=== PATIENT | male | born 1960 | race Hispanic/Latino ===

== ENCOUNTER 2017-01-31 21:57 | Observation (INO) | payer MEDICAID, OTHER ==
[2017-01-31 21:57] VITALS: BMI 22.1
[2017-01-31] MEDS ORDERED: Naloxone 0.4 mg/ml Inj (Adult) IVP STA (22:44)
[2017-01-31 23:11] LABS: BASO % 0.5 % (0.0-2.0); EOS # 0.1 K/uL (0.0-0.7); EOS % 2.8 % (0.0-4.0); HEMATOCRIT 35.9 % (35.0-51.0); LYMPH # 2.1 K/uL (1.0-4.3); LYMPH % 42.8 % (20.0-40.0); MEAN CELL VOLUME 95.8 fl (80.0-94.0); MEAN CORPUSCULAR HEMOGLOBIN 31.5 pg (27.0-31.0); MEAN CORPUSCULAR HGB CONC 32.9 g/dL (33.0-37.0); MEAN PLATELET VOLUME 5.9 fl (7.2-11.7); MONO # 0.5 K/uL (0.0-0.8); MONO % 10.9 % (0.0-10.0); NEUT # 2.1 K/uL (1.8-7.0); RED CELL DISTRIBUTION WIDTH 14.1 % (11.5-14.5); WHITE BLOOD COUNT 4.9 K/uL (4.8-10.8)
[2017-01-31 23:16] LABS: ALB/GLOB RATIO 1.5 (1.0-2.1); ALCOHOL SERUM < 10 mg/dl (0-10); ALKALINE PHOSPHATASE 79 U/L (38-126); ALT/SGPT 23 U/L (21-72); AST/SGOT 20 U/L (17-59); BILIRUBIN,TOTAL 0.2 mg/dl (0.2-1.3); BLOOD UREA NITROGEN 14 mg/dl (9-20); CALCIUM 8.8 mg/dL (8.4-10.2); CARBON DIOXIDE 30 mmol/L (22-30); CHLORIDE 102 mmol/L (98-107); GFR AFRICAN-AMERICAN > 60; GLUCOSE,RANDOM 108 mg/dL (75-110); POTASSIUM 3.9 MMOL/L (3.6-5.0); SODIUM 138 mmol/l (132-148); TOTAL PROTEIN 6.5 G/DL (6.3-8.2)
--- NOTE | 2017-02-01 00:02 | ED PDOC ---
HPI: Psych/Substance Abuse Time Seen by Provider: 01/31/17 22:05 Chief Complaint (Nursing): Substance Abuse History Per: EMS Additional Complaint(s): Pt. brought in by EMS for substance abuse or ETOH intoxication. Unable to find EMS report. Pt. not answering questions. Past Medical History Reviewed: Historical Data, Nursing Documentation, Vital Signs Vital Signs: Last Vital Signs Temp 98.2 F 01/31/17 22:02 Pulse 74 01/31/17 23:04 Resp 15 01/31/17 23:04 BP 101/63 01/31/17 23:04 Pulse Ox 96 01/31/17 23:04 - Medical History PMH: Back Problems, Depression, Seizures Denies: Diabetes, Hepatitis, HIV, HTN, Chronic Kidney Disease, Sexually Transmitted Disease - Family History Family History: States: Unknown Family Hx - Immunization History Hx Tetanus Toxoid Vaccination: No Hx Influenza Vaccination: No Hx Pneumococcal Vaccination: No - Home Medications Home Medications: Ambulatory Orders Medication Instructions Recorded Gabapentin [Neurontin] 300 mg PO TID 08/15/16 levETIRAcetam [Keppra] 500 mg PO TID 08/15/16 traMADol [Ultram] 50 mg PO PRN PRN 08/15/16 Tobramycin 0.3% [Tobrex 0.3% Ophth 1 drop OS Q4 #1 bottle 09/27/16 Soln] Albuterol 0.042% [Albuterol 0.042% 3 ml IH PRN PRN 12/31/16 Inhal Stefanie (1.25mg/3ml) UD] Zolpidem [Ambien] 10 mg PO DAILY 12/31/16 - Allergies Allergies/Adverse Reactions: Allergies Allergy/AdvReac Type Severity Reaction Status Date / Time No Known Allergies Allergy Verified 01/07/17 09:06 Review of Systems Review Of Systems: ROS cannot be obtained secondary to pt's inabilty to answer questions. Physical Exam - Reviewed Nursing Documentation Reviewed: Yes Vital Signs Reviewed: Yes - Physical Exam Appears: Positive for: Well, Non-toxic, No Acute Distress Head Exam: Positive for: ATRAUMATIC, NORMAL INSPECTION, NORMOCEPHALIC Skin: Positive for: Normal Color, Warm. Negative for: Rash Eye Exam: Positive for: EOMI, Normal appearance, PERRL ENT: Positive for: Normal ENT Inspection Neck: Positive for: Normal, Painless ROM Cardiovascular/Chest: Positive for: Regular Rate, Rhythm, Chest Non Tender Respiratory: Positive for: CNT, Normal Breath Sounds Gastrointestinal/Abdominal: Positive for: Normal Exam, Bowel Sounds, Soft. Negative for: Tenderness Back: Positive for: Normal Inspection. Negative for: Vertebral Tenderness ( including cervical area) Extremity: Positive for: Normal ROM Neurologic/Psych: Positive for: Alert, Other (Pt. responds only to loud verbal and tactile stimuli but does not follow commands). Negative for: Aphasia, Facial Droop - Laboratory Results Result Diagrams: 01/31/17 22:49 01/31/17 22:49 - ECG ECG: Positive for: Interpreted By Me ECG Rhythm: Positive for: Sinus Rhythm O2 Sat by Pulse Oximetry: 96 - Radiology X-Ray: Interpreted by Me (CXR) X-Ray Interpretation: No Acute Disease ED OBSERVATION Discharge: Yes Date of observation admission: 02/01/17 Time of observation admission: 22:45 - Observation admission statement Patient is being placed in observation because:: substance abuse vs. etoh intoxication - Progress Note Progress Note: 01/31/17 22:[address] Bass as pt. is hypoxic at 92% on RA. Narcan ordered but pt. remains somnolent and is still not refusing to answer questions. POX: 94-96% on RA O2 placed. 02/01/17 02:08 Sleeping comfortably. Arousable to tactile stimuli. 02/01/17 04:18 Pt. AOx3. States he took ~10 Fioricet tabs yesterday for a headache. Reports a hx of chronic headaches. Currently without a headache. Denies SI/HI, hallucinations. 02/01/17 05:01 CT head w/o contrast: No acute changes Diffuse fluid in multiple left mastoid air cells inferiorly, suspicious for mastoiditis. There is also sclerosis of the left mastoid process, a finding which can be seen in the setting of chronic mastoiditis. There is no evidence of diffuse left mastoid fluid or fluid in the left middle ear cavity. Pt. states approximately 4 years ago he was admitted into the hospital for an ear infection but is uncertain if it was mastoiditis. Denies pain to mastoid area. No mastoid tenderness or swelling. 02/01/17 05:57 Pt. with steady unassisted gait. Disposition - Clinical Impression Clinical Impression: Overdose of barbiturate - Patient ED Disposition Is Patient to be Admitted: No - Disposition Disposition Time: 05:59 Condition: IMPROVED
[2017-02-01] MEDS ORDERED: Sodium Chloride 0.9% 1,000 ML IV STA (00:55)
--- NOTE | 2017-02-01 04:49 | CT ---
EXAM: CT Head Without Intravenous Contrast CLINICAL HISTORY: 56 years old, male; Signs and symptoms; Other: Substance abuse; Additional info: AMS TECHNIQUE: Axial computed tomography images of the head/brain without intravenous contrast. This CT exam was performed using one or more of the following dose reduction techniques: automated exposure control, adjustment of the mA and/or kV according to patient size, and/or use of iterative reconstruction technique. Coronal and sagittal reformatted images were created and reviewed. EXAM DATE/TIME: 02/01/2017 12:48 AM COMPARISON: No relevant prior studies available. FINDINGS: LIMITATIONS: Exam is somewhat limited by mild streak/motion artifact. BRAIN: Focal area of low density is seen in the left basal ganglia, which has an appearance most compatible with an old/chronic lacunar infarct. Diffuse, age-related cortical atrophy and ventriculomegaly. No significant acute abnormality identified. No acute hemorrhage seen within the brain. No acute extra-axial fluid collections visualized. No evidence of significant mass effect within the brain. VENTRICLES: See above. BONES/JOINTS: No acute fractures or other acute bony abnormality noted. SOFT TISSUES: No acute abnormality of the visualized soft tissues is seen. SINUSES: Visualized paranasal sinuses appear clear. MASTOID AIR CELLS: Diffuse fluid in multiple left mastoid air cells inferiorly, suspicious for mastoiditis. There is also sclerosis of the left mastoid process, a finding which can be seen in the setting of chronic mastoiditis. There is no evidence of diffuse left mastoid fluid or fluid in the left middle ear cavity. IMPRESSION: - No acute findings seen within the brain. - Findings compatible with left mastoiditis. - See above for remaining findings.
--- NOTE | 2017-02-01 04:58 | CT ---
EXAM: CT Cervical Spine Without Intravenous Contrast CLINICAL HISTORY: 56 years old, male; Injury or trauma; Injury Substance abuse; Initial encounter; Swelling; Additional info: AMS TECHNIQUE: Axial computed tomography images of the cervical spine without intravenous contrast. This CT exam was performed using one or more of the following dose reduction techniques: automated exposure control, adjustment of the mA and/or kV according to patient size, and/or use of iterative reconstruction technique. Coronal and sagittal reformatted images were created and reviewed. EXAM DATE/TIME: 02/01/2017 12:48 AM COMPARISON: No relevant prior studies available. FINDINGS: VERTEBRAE: No acute cervical spine fractures visualized. No significant vertebral subluxation seen on the sagittal reformatted images. Normal alignment of C1 and C2 and of the facet joints. DISCS/SPINAL CANAL/NEURAL FORAMINA: Mild multilevel degenerative disc disease. Degenerative changes at the atlantoaxial joint. SOFT TISSUES: No acute abnormality of the visualized soft tissues is seen. LUNG APICES: Emphysematous changes incidentally noted in the lung apices. No pneumothorax is seen. OTHER FINDINGS: Bony structures appear demineralized. IMPRESSION: - No acute cervical spine fractures identified. - Emphysematous changes incidentally noted. - See above for remaining findings.
[2017-02-01 06:43] VITALS: BP 125/81; PULSE 66; RESP 17; TEMP 98.3; O2SAT 99
--- NOTE | 2017-02-01 09:42 | RAD ---
HISTORY: hypoxic COMPARISON: 07/20/2016 FINDINGS: LUNGS: No focal airspace opacity. Hyperinflation. Suspected emphysematous changes lung apices. PLEURA: No significant pleural effusion identified, no pneumothorax apparent.Biapical pleural parenchymal thickening noted. CARDIOVASCULAR: Stable. OSSEOUS STRUCTURES: The osseous structures demonstrate degenerative changes. VISUALIZED UPPER ABDOMEN: Upper abdomen is suboptimally evaluated. OTHER FINDINGS: None. IMPRESSION: No focal airspace opacity. Please note that chest radiographs have low sensitivity for small pulmonary nodules. If indicated, chest CT should be obtained.
--- NOTE | 2017-02-01 12:44 | CARD ---
APPROVED REPORT EKG Measurement Heart [id number] <Conclusion> Normal sinus rhythm Normal ECG
== END 2017-02-01 06:13 | disposition home or self-care (01) ==
LOC: H.ER 21:57 → H.EROBSV 22:45
PROVIDERS: ADMIT Emergency Medicine; ATTEND Emergency Medicine
DX: T42.3X1A Poisoning by barbiturates, accidental (unintentional), initial encounter (principal); F10.129 Alcohol abuse with intoxication, unspecified; Y92.9 Unspecified place or not applicable

== ENCOUNTER 2017-02-28 00:24 | Observation (INO) | payer OTHER ==
[2017-02-28 00:25] VITALS: BMI 22.1
[2017-02-28 00:31] VITALS: TEMP 98.3
[2017-02-28 01:57] LABS: BASO % 0.7 % (0.0-2.0); EOS # 0.1 K/uL (0.0-0.7); HEMOGLOBIN 12.5 g/dL (12.0-18.0); LYMPH # 1.9 K/uL (1.0-4.3); LYMPH % 32.8 % (20.0-40.0); MEAN CELL VOLUME 96.4 fl (80.0-94.0); MEAN CORPUSCULAR HEMOGLOBIN 32.5 pg (27.0-31.0); MEAN CORPUSCULAR HGB CONC 33.7 g/dL (33.0-37.0); MEAN PLATELET VOLUME 5.8 fl (7.2-11.7); MONO # 0.8 K/uL (0.0-0.8); MONO % 13.4 % (0.0-10.0); NEUT # 2.9 K/uL (1.8-7.0); NEUT % 51.1 % (50.0-75.0); NRBC % 0.1 % (0.0-0.0); RBC 3.85 Mil/uL (4.40-5.90); RED CELL DISTRIBUTION WIDTH 14.1 % (11.5-14.5); WHITE BLOOD COUNT 5.7 K/uL (4.8-10.8)
--- NOTE | 2017-02-28 02:05 | ED PDOC ---
HPI: Psych/Substance Abuse Time Seen by Provider: 02/28/17 00:35 Chief Complaint (Nursing): Substance Abuse Chief Complaint (Provider): Substance Abuse ED Caveat: Intoxicated (Fioricet) History Per: Patient History/Exam Limitations: intoxication (Fioricet) Onset/Duration Of Symptoms: Hrs (earlier today) Current Symptoms Are (Timing): Still Present Modifying Factor(s): Other (Fioricet) Involuntary Hold By: None Additional History Per: EMS Additional Complaint(s): 56 year old male brought in by EMS presents to ED due to drug abuse. Patient states that he took x15 pills of Fioricet after having a headache and wanting to feel better. States that he no longer has headache. Patient denies memory of falling/hitting head, and arrives to ED with right sided facial trauma. PCP: None Past Medical History Reviewed: Historical Data, Nursing Documentation, Vital Signs Vital Signs: Last Vital Signs Temp 98.3 F 02/28/17 00:26 Pulse 94 H 02/28/17 00:26 Resp 16 02/28/17 00:26 BP 149/65 02/28/17 00:26 Pulse Ox 98 02/28/17 00:26 - Medical History PMH: Back Problems, Depression, Seizures Denies: Diabetes, Hepatitis, HIV, HTN, Chronic Kidney Disease, Sexually Transmitted Disease - Family History Family History: States: Unknown Family Hx - Social History Drugs: Prescription medications (Fioricet) - Immunization History Hx Tetanus Toxoid Vaccination: No Hx Influenza Vaccination: No Hx Pneumococcal Vaccination: No - Home Medications Home Medications: Ambulatory Orders Medication Instructions Recorded Gabapentin [Neurontin] 300 mg PO TID 08/15/16 levETIRAcetam [Keppra] 500 mg PO TID 08/15/16 traMADol [Ultram] 50 mg PO PRN PRN 08/15/16 Tobramycin 0.3% [Tobrex 0.3% Ophth 1 drop OS Q4 #1 bottle 09/27/16 Soln] Albuterol 0.042% [Albuterol 0.042% 3 ml IH PRN PRN 12/31/16 Inhal Stefanie (1.25mg/3ml) UD] Zolpidem [Ambien] 10 mg PO DAILY 12/31/16 - Allergies Allergies/Adverse Reactions: Allergies Allergy/AdvReac Type Severity Reaction Status Date / Time No Known Allergies Allergy Verified 01/07/17 09:06 Review of Systems Review Of Systems: ROS cannot be obtained secondary to pt's inabilty to answer questions. (Limited due to drug abuse) Neurological: Positive for: Headache (Resolution of headache) Physical Exam - Reviewed Nursing Documentation Reviewed: Yes - Physical Exam Appears: Positive for: No Acute Distress. Negative for: Well Head Exam: Positive for: NORMOCEPHALIC. Negative for: ATRAUMATIC (abrasion to nose, right evangelical, and 1 cm laceration to right eyebrow) Skin: Positive for: Normal Color, Warm, Dry Eye Exam: Positive for: Normal appearance ENT: Positive for: Normal ENT Inspection Neck: Positive for: Normal, Painless ROM, Supple Cardiovascular/Chest: Negative for: Murmur Respiratory: Negative for: Respiratory Distress Gastrointestinal/Abdominal: Positive for: Normal Exam, Soft. Negative for: Tenderness Back: Positive for: Normal Inspection Extremity: Positive for: Normal ROM. Negative for: Deformity Neurologic/Psych: Negative for: Alert (somnolent but arousable upon sternal rub) , Motor/Sensory Deficits - Laboratory Results Result Diagrams: 02/28/17 01:54 02/28/17 01:54 - ECG O2 Sat by Pulse Oximetry: 98 (RA) Pulse Ox Interpretation: Normal Medical Decision Making Medical Decision Makin Initial impression: drug abuse and head injury Initial plan: * Acetaminophen * EtOH serum * Labs * UDrug * Salicylate * ED OBS All further documentation will take place in the ED OBS section of the chart. Wound repair in procedure notes. Scribe Attestation: Documented by Ciear Peña acting as a scribe for Wayne Bass MD. Scribe Attestation: All medical record entries made by the Scribe were at my direction and personally dictated by me. I have reviewed the chart and agree that the record accurately reflects my personal performance of the history, physical exam, medical decision making, and the department course for this patient. I have also personally directed, reviewed, and agree with the discharge instructions and disposition. Procedures - Time-Out Type of Procedure: Wound Repair Site of Procedure: Right eyebrow Correct Patient (with visual ID + MR# on ID Band): Yes Correct Procedure: Yes Correct Site Marked: Yes X-Ray Marked: NA Medication Reconciliation / Bloodwork / Allergies Checked: Yes Physician Name: Wayne Bass - Laceration/Wound Repair Right Eyebrow Wound Length (cm): 1 Wound's Depth, Shape: superficial Wound Explored: clean Wound Repaired With: Skin adhesive (Dermabond) Layer Closure?: Yes Wound Complexity: Simple Progress: Patient tolerated procedure well. ED OBSERVATION Discharge: Yes Date of observation admission: 02/28/17 Time of observation admission: 01:25 - Observation admission statement Patient is being placed in observation because:: Drug abuse/intoxication - Goals of Observation Goals of observation are:: Clinical sobriety - Progress Note Progress Note: 02/28/17 02:23 Patient's vitals are stable and resting. 02/28/17 03:37 Patient is resting comfortably. 02/28/17 05:01 Patient is resting comfortably. 02/28/17 06:36 Patient is resting comfortably. 02/28/17 06:54 Upon re-evaluation, patient is feeling much better and is medically stable and ready for discharge. Counseling has been provided and patient is in agreement. Return if symptoms persist or acutely worsen. Disposition - Clinical Impression Clinical Impression: Overdose - Disposition Disposition: Routine/Home ([id number]) Disposition Time: 01:25 Condition: STABLE - Pt Status Changed To: Hospital Disposition Of: Observation
[2017-02-28 02:06] LABS: GFR AFRICAN-AMERICAN > 60; GFR NON-AFRICAN AMERICAN > 60
[2017-02-28 02:07] LABS: BLOOD UREA NITROGEN 16 mg/dl (9-20); CALCIUM 8.7 mg/dL (8.4-10.2)
[2017-02-28 02:32] LABS: SALICYLATE < 1.0 mg/dl
[2017-02-28 02:36] LABS: ACETAMINOPHEN < 10.0 ug/ml (10.0-30.0)
[2017-02-28] MEDS ORDERED: Sodium Chloride 0.9% 1,000 ML IV STA (04:07)
--- NOTE | 2017-02-28 04:53 | CT ---
EXAM: CT Maxillofacial Without Intravenous Contrast CLINICAL HISTORY: 56 years old, male; Injury or trauma; Fall; Initial encounter; Blunt trauma (contusions or hematomas); Forehead; Additional info: Head injury, drug abuse TECHNIQUE: Axial computed tomography images of the face without intravenous contrast. This CT exam was performed using one or more of the following dose reduction techniques: automated exposure control, adjustment of the mA and/or kV according to patient size, and/or use of iterative reconstruction technique. Coronal and sagittal reformatted images were created and reviewed. EXAM DATE/TIME: 02/28/2017 2:43 AM COMPARISON: CT - HEAD W/O CONTRAST 02/01/2017 4:01:05 AM FINDINGS: Dental hardware producing artifact. Subcutaneous soft tissue swelling right frontal, nasal and orbital regions. Small amount of fluid in the left mastoid air cells similar to prior. There is minimal mucosal thickening of the ethmoid sinuses. No acute fractures. IMPRESSION: No acute fractures.
--- NOTE | 2017-02-28 05:02 | CT ---
EXAM: CT Head Without Intravenous Contrast CLINICAL HISTORY: 56 years old, male; Injury or trauma; Fall; Additional info: Drug abuse, head injury TECHNIQUE: Axial computed tomography images of the head/brain without intravenous contrast. This CT exam was performed using one or more of the following dose reduction techniques: automated exposure control, adjustment of the mA and/or kV according to patient size, and/or use of iterative reconstruction technique. Coronal and sagittal reformatted images were created and reviewed. EXAM DATE/TIME: 02/28/2017 2:43 AM COMPARISON: CT - HEAD W/O CONTRAST 02/01/2017 4:01:05 AM FINDINGS: There is subcutaneous soft tissue swelling in the right frontal, nasal, orbital regions. No intracranial hemorrhage. Stable old lacunar infarct left basal ganglia. No intracranial edema. Stable mild mucosal thickening of the ethmoid sinuses. Small amount of fluid and sclerosis in the inferior left mastoid air cells not significantly changed. No depressed fractures. IMPRESSION: No acute intracranial injury.
[2017-02-28 05:17] VITALS: BP 120/74; PULSE 68; RESP 17
[2017-02-28 06:02] VITALS: O2SAT 98
[2017-02-28 07:34] LABS: BARBITURATES, UR POSITIVE (NEGATIVE); BENZODIAZEPINES, UR NEGATIVE (NEGATIVE); PHENCYCLIDINE, UR NEGATIVE (NEGATIVE)
[2017-02-28 07:36] LABS: OPIATES, UR NEGATIVE (NEGATIVE)
[2017-02-28 10:16] LABS: ALT/SGPT 25 U/L (21-72); AST/SGOT 41 U/L (17-59)
--- NOTE | 2017-03-06 06:42 | CARD ---
APPROVED REPORT EKG Measurement Heart [id number] <Conclusion> Normal sinus rhythm Early repolarization Normal ECG
== END 2017-02-28 07:00 | disposition home or self-care (01) ==
LOC: H.ER 00:24 → H.EROBSV 01:25
PROVIDERS: ADMIT Emergency Medicine; ATTEND Emergency Medicine
DX: F19.10 Other psychoactive substance abuse, uncomplicated (principal); F32.9 Major depressive disorder, single episode, unspecified; G40.909 Epilepsy, unspecified, not intractable, without status epilepticus; R51 Headache; S01.111A Laceration without foreign body of right eyelid and periocular area, initial encounter; X58.XXXA Exposure to other specified factors, initial encounter

== ENCOUNTER 2017-03-27 22:55 | Observation (INO) | payer OTHER ==
[2017-03-27 22:56] VITALS: BMI 22.1
[2017-03-27 23:02] VITALS: TEMP 98.5
--- NOTE | 2017-03-27 23:39 | ED PDOC ---
HPI: Psych/Substance Abuse Time Seen by Provider: 03/27/17 23:25 Chief Complaint (Nursing): Substance Abuse Chief Complaint (Provider): Altered Mental Status and Possible Substance Abuse ED Caveat: Altered Mental Status History Per: EMS, Other (Charts) History/Exam Limitations: intoxication (Possible Substance Intoxication) Modifying Factor(s): Alcohol Additional Complaint(s): Stewart Chirinos, a 56 year old male, who has a past medical history of seizures and substance abuse is brought into the ED by ambulance for altered mental status and and possible substance abuse. Unable to obtain history due to patients condition.Unable to answer questions about review of systems and past medical history. History obtained from EMS and patient charts. Past Medical History Reviewed: Historical Data, Nursing Documentation, Vital Signs Vital Signs: Last Vital Signs Temp 98.5 F 03/27/17 22:59 Pulse 74 03/27/17 23:17 Resp 16 03/27/17 23:17 BP 110/74 03/27/17 23:17 Pulse Ox 97 03/27/17 23:17 - Medical History PMH: Back Problems, Depression, Seizures Denies: Diabetes, Hepatitis, HIV, HTN, Chronic Kidney Disease, Sexually Transmitted Disease - Family History Family History: States: Unknown Family Hx - Immunization History Hx Tetanus Toxoid Vaccination: No Hx Influenza Vaccination: No Hx Pneumococcal Vaccination: No - Home Medications Home Medications: Ambulatory Orders Medication Instructions Recorded Gabapentin [Neurontin] 300 mg PO TID 08/15/16 levETIRAcetam [Keppra] 500 mg PO TID 08/15/16 traMADol [Ultram] 50 mg PO PRN PRN 08/15/16 Tobramycin 0.3% [Tobrex 0.3% Ophth 1 drop OS Q4 #1 bottle 09/27/16 Soln] Albuterol 0.042% [Albuterol 0.042% 3 ml IH PRN PRN 12/31/16 Inhal Stefanie (1.25mg/3ml) UD] Zolpidem [Ambien] 10 mg PO DAILY 12/31/16 - Allergies Allergies/Adverse Reactions: Allergies Allergy/AdvReac Type Severity Reaction Status Date / Time No Known Allergies Allergy Verified 03/27/17 22:59 Review of Systems ROS Statement: Except As Marked, All Systems Reviewed And Found Negative Physical Exam - Reviewed Nursing Documentation Reviewed: Yes Vital Signs Reviewed: Yes - Physical Exam Appears: Positive for: Non-toxic, No Acute Distress Head Exam: Positive for: ATRAUMATIC, NORMAL INSPECTION, NORMOCEPHALIC Skin: Positive for: Normal Color, Warm, Dry Eye Exam: Positive for: Normal appearance, EOMI, PERRL ENT: Positive for: Normal ENT Inspection Neck: Positive for: Normal, Painless ROM, Supple Cardiovascular/Chest: Positive for: Regular Rate, Rhythm, Chest Non Tender Respiratory: Positive for: Normal Breath Sounds. Negative for: Wheezing, Respiratory Distress Gastrointestinal/Abdominal: Positive for: Normal Exam, Bowel Sounds, Soft. Negative for: Tenderness Back: Positive for: Normal Inspection Extremity: Positive for: Normal ROM. Negative for: Tenderness, Deformity, Swelling Neurologic/Psych: Negative for: Alert (Obtunded, Easily arousable to verbal and physical stimulation.), Motor/Sensory Deficits - Laboratory Results Result Diagrams: 03/27/17 23:46 03/27/17 23:46 - ECG O2 Sat by Pulse Oximetry: 97 (RA) Pulse Ox Interpretation: Normal Medical Decision Making Medical Decision Makin Initial Impression: 56 year old male presenting with altered mental status Differentials:Substance abuse with Alcohol Intoxication vs Benzol Overdose vs Barbiturate Abuse, Other causes of altered mental status also considered Initial Plan: * CT Head w/o Contrast * EKG * Alcohol Serum * Comp Metabolic Panel * Drug Screen * CBC * [id number] * Reevaluation 12:32 CT Head Without Intravenous Contrast TECHNIQUE: Axial computed tomography images of the head/brain without intravenous contrast. This CT exam was performed using one or more of the following dose reduction techniques: automated exposure control, adjustment of the mA and/or kV according to patient size, and/or use of iterative reconstruction technique. Coronal and sagittal reformatted images were created and reviewed. EXAM DATE/TIME: 03/27/2017 11:30 PM COMPARISON: CT - HEAD W/O CONTRAST 02/28/2017 4:01:09 AM FINDINGS: No intracranial hemorrhage. No intracranial edema. No evidence of infarct. Mild mucosal thickening of the ethmoid sinuses similar to prior possibly slightly increased on the left. Recommend clinical correlation with regards to signs/symptoms of sinusitis. Stable small amount of fluid and sclerosis inferior left mastoid air cells. IMPRESSION: No acute intracranial findings. Sinus disease as above. Scribe Attestation Documented by Natalia Harris acting as a scribe for Danica Henning MD. Provider Attestation All medical record entries made by the Scribe were at my direction and personally dictated by me. I have reviewed the chart and agree that the record accurately reflects my personal performance of the history, physical exam, medical decision making, and the department course for this patient. I have also personally directed, reviewed, and agree with the discharge instructions and disposition. ED OBSERVATION Date of observation admission: 03/28/17 Time of observation admission: 02:17 - Observation admission statement Patient is being placed in observation because:: Altered mental status and substance abuse. Disposition - Clinical Impression Clinical Impression: Substance abuse - Patient ED Disposition Is Patient to be Admitted: No Doctor Will See Patient In The: Office Counseled Patient/Family Regarding: Studies Performed, Diagnosis, Need For Followup - Disposition Disposition: Routine/Home Disposition Time: 06:08 Condition: GOOD - POA Present On Arrival: None
[2017-03-27 23:51] LABS: BASO % 0.3 % (0.0-2.0); EOS # 0.1 K/uL (0.0-0.7); EOS % 1.8 % (0.0-4.0); LYMPH # 2.6 K/uL (1.0-4.3); MEAN CELL VOLUME 96.6 fl (80.0-94.0); MEAN CORPUSCULAR HGB CONC 33.1 g/dL (33.0-37.0); MEAN PLATELET VOLUME 6.1 fl (7.2-11.7); MONO # 0.9 K/uL (0.0-0.8); MONO % 11.6 % (0.0-10.0); NEUT # 4.1 K/uL (1.8-7.0); NEUT % 53.3 % (50.0-75.0); NRBC % 0.1 % (0.0-0.0); RBC 4.05 Mil/uL (4.40-5.90); RED CELL DISTRIBUTION WIDTH 13.5 % (11.5-14.5); WHITE BLOOD COUNT 7.8 K/uL (4.8-10.8)
[2017-03-27 23:58] LABS: ALB/GLOB RATIO 1.6 (1.0-2.1); ALBUMIN 4.2 g/dL (3.5-5.0); ALT/SGPT 29 U/L (21-72); AST/SGOT 22 U/L (17-59); BLOOD UREA NITROGEN 16 mg/dl (9-20); CALCIUM 8.9 mg/dL (8.4-10.2); GFR AFRICAN-AMERICAN > 60; GFR NON-AFRICAN AMERICAN > 60
--- NOTE | 2017-03-28 00:32 | CT ---
EXAM: CT Head Without Intravenous Contrast CLINICAL HISTORY: 56 years old, male; Signs and symptoms; Altered mental status/memory loss; Other: Poss substance abuse; Additional info: AMS TECHNIQUE: Axial computed tomography images of the head/brain without intravenous contrast. This CT exam was performed using one or more of the following dose reduction techniques: automated exposure control, adjustment of the mA and/or kV according to patient size, and/or use of iterative reconstruction technique. Coronal and sagittal reformatted images were created and reviewed. EXAM DATE/TIME: 03/27/2017 11:30 PM COMPARISON: CT - HEAD W/O CONTRAST 02/28/2017 4:01:09 AM FINDINGS: No intracranial hemorrhage. No intracranial edema. No evidence of infarct. Mild mucosal thickening of the ethmoid sinuses similar to prior possibly slightly increased on the left. Recommend clinical correlation with regards to signs/symptoms of sinusitis. Stable small amount of fluid and sclerosis inferior left mastoid air cells. IMPRESSION: No acute intracranial findings. Sinus disease as above.
[2017-03-28 04:00] VITALS: BP 135/80; PULSE 72; RESP 16
[2017-03-28 06:08] VITALS: O2SAT 97
--- NOTE | 2017-03-28 10:12 | CARD ---
APPROVED REPORT EKG Measurement Heart [id number] CT [id number] <Conclusion> Normal sinus rhythm Normal ECG
== END 2017-03-28 06:13 | disposition home or self-care (01) ==
LOC: H.ER 22:55 → H.EROBSV 03-28 02:16
PROVIDERS: ADMIT Emergency Medicine; ATTEND Emergency Medicine
DX: F19.10 Other psychoactive substance abuse, uncomplicated (principal); R41.82 Altered mental status, unspecified; F32.9 Major depressive disorder, single episode, unspecified; G40.909 Epilepsy, unspecified, not intractable, without status epilepticus

== ENCOUNTER 2017-03-28 23:06 | Emergency (ER) | payer OTHER ==
[2017-03-28 23:06] VITALS: BMI 22.1
--- NOTE | 2017-03-29 01:05 | ED PDOC ---
HPI: Psych/Substance Abuse Time Seen by Provider: 03/28/17 23:14 Chief Complaint (Nursing): Alcohol Ingestion Chief Complaint (Provider): ETOH - Pt found sleeping, pt admits to drinking History Per: Patient History/Exam Limitations: no limitations Onset/Duration Of Symptoms: Hrs Current Symptoms Are (Timing): Still Present Modifying Factor(s): Alcohol Additional Complaint(s): Pt states he was sleeping outside when he was woken up by EMS. Pt denies complaint. Past Medical History Reviewed: Historical Data, Nursing Documentation, Vital Signs Vital Signs: Last Vital Signs Temp 97.9 F 03/28/17 23:09 Pulse 68 03/28/17 23:09 Resp 16 03/28/17 23:09 BP 115/75 03/28/17 23:09 Pulse Ox 95 03/28/17 23:09 - Medical History PMH: Back Problems, Depression, Seizures Denies: Diabetes, Hepatitis, HIV, HTN, Chronic Kidney Disease, Sexually Transmitted Disease - Surgical History Surgical History: No Surg Hx - Family History Family History: States: Unknown Family Hx - Living Arrangements Living Arrangements: With Family - Social History Current smoker - smoking cessation education provided: No - Immunization History Hx Tetanus Toxoid Vaccination: No Hx Influenza Vaccination: No Hx Pneumococcal Vaccination: No - Home Medications Home Medications: Ambulatory Orders Medication Instructions Recorded Gabapentin [Neurontin] 300 mg PO TID 08/15/16 levETIRAcetam [Keppra] 500 mg PO TID 08/15/16 traMADol [Ultram] 50 mg PO PRN PRN 08/15/16 Tobramycin 0.3% [Tobrex 0.3% Ophth 1 drop OS Q4 #1 bottle 09/27/16 Soln] Albuterol 0.042% [Albuterol 0.042% 3 ml IH PRN PRN 12/31/16 Inhal Stefanie (1.25mg/3ml) UD] Zolpidem [Ambien] 10 mg PO DAILY 12/31/16 - Allergies Allergies/Adverse Reactions: Allergies Allergy/AdvReac Type Severity Reaction Status Date / Time No Known Allergies Allergy Verified 03/28/17 23:09 Review of Systems ROS Statement: Except As Marked, All Systems Reviewed And Found Negative Gastrointestinal: Negative for: Nausea, Vomiting, Abdominal Pain Skin: Negative for: Bruising Physical Exam - Reviewed Nursing Documentation Reviewed: Yes Vital Signs Reviewed: Yes - Physical Exam Appears: Positive for: Well, Non-toxic, No Acute Distress Head Exam: Positive for: ATRAUMATIC, NORMAL INSPECTION, NORMOCEPHALIC Skin: Positive for: Normal Color, Warm, DRY Eye Exam: Positive for: Normal appearance, EOMI, PERRL ENT: Positive for: Normal ENT Inspection Neck: Positive for: Normal, Painless ROM Cardiovascular/Chest: Positive for: Regular Rate, Rhythm Respiratory: Positive for: Normal Breath Sounds. Negative for: Accessory Muscle Use, Respiratory Distress Gastrointestinal/Abdominal: Positive for: Normal Exam, Bowel Sounds, Soft Back: Positive for: Normal Inspection Extremity: Positive for: Normal ROM Neurologic/Psych: Positive for: Alert, Oriented - ECG O2 Sat by Pulse Oximetry: 95 Disposition - Clinical Impression Clinical Impression: Alcohol abuse - Patient ED Disposition Is Patient to be Admitted: No Counseled Patient/Family Regarding: Diagnosis, Need For Followup - Disposition Disposition: Routine/Home Disposition Time: 04:41 Condition: GOOD Instructions: Abuse of Alcohol (ED)
[2017-03-29 06:07] VITALS: BP 126/76; PULSE 78; RESP 18; TEMP 98.2
[2017-03-29 06:08] VITALS: O2SAT 95
== END 2017-03-29 06:23 | disposition home or self-care (01) ==
LOC: H.ER 23:06
DX: F10.10 Alcohol abuse, uncomplicated (principal); F32.9 Major depressive disorder, single episode, unspecified

== ENCOUNTER 2017-04-27 17:42 | Observation (INO) | payer OTHER ==
[2017-04-27 17:42] VITALS: BMI 22.1
--- NOTE | 2017-04-27 18:25 | ED PDOC ---
HPI: Psych/Substance Abuse Time Seen by Provider: 04/27/17 17:43 Chief Complaint (Nursing): Substance Abuse Chief Complaint (Provider): Substance Abuse ED Caveat: Intoxicated (substance ) History Per: EMS History/Exam Limitations: intoxication (substance) Onset/Duration Of Symptoms: Mins (prior to arrival) Current Symptoms Are (Timing): Still Present Additional Complaint(s): Stewart Chirinos is a 56 year old male who presents to the emergency department via EMS for an evaluation after patient was found walking with unsteady gait in street prior to arrival. Unable to provide accurate history due to patient's current state of drug intoxication. Patient admitted to using a bag of heroine and Xanax today. PMD: none provided Past Medical History Reviewed: Historical Data, Nursing Documentation, Vital Signs Vital Signs: Last Vital Signs Temp 98.0 F 04/27/17 17:48 Pulse 94 H 04/27/17 17:48 Resp 19 04/27/17 17:48 BP 160/98 H 04/27/17 17:48 Pulse Ox 96 04/27/17 17:48 - Medical History PMH: Back Problems, Depression, Seizures Denies: Diabetes, Hepatitis, HIV, HTN, Chronic Kidney Disease, Sexually Transmitted Disease - Family History Family History: States: Unknown Family Hx - Immunization History Hx Tetanus Toxoid Vaccination: No Hx Influenza Vaccination: No Hx Pneumococcal Vaccination: No - Home Medications Home Medications: Ambulatory Orders Medication Instructions Recorded Gabapentin [Neurontin] 300 mg PO TID 08/15/16 levETIRAcetam [Keppra] 500 mg PO TID 08/15/16 traMADol [Ultram] 50 mg PO PRN PRN 08/15/16 Tobramycin 0.3% [Tobrex 0.3% Ophth 1 drop OS Q4 #1 bottle 09/27/16 Soln] Albuterol 0.042% [Albuterol 0.042% 3 ml IH PRN PRN 12/31/16 Inhal Stefanie (1.25mg/3ml) UD] Zolpidem [Ambien] 10 mg PO DAILY 12/31/16 - Allergies Allergies/Adverse Reactions: Allergies Allergy/AdvReac Type Severity Reaction Status Date / Time No Known Allergies Allergy Verified 03/28/17 23:09 Review of Systems Review Of Systems: ROS cannot be obtained secondary to pt's inabilty to answer questions. (substance intoxication) Physical Exam - Reviewed Nursing Documentation Reviewed: Yes Vital Signs Reviewed: Yes - Physical Exam Appears: Positive for: Well (but sleepy) Head Exam: Positive for: ATRAUMATIC Skin: Positive for: Normal Color Neurologic/Psych: Positive for: Alert (responds to verbal stimuli), Mood/Affect (falls asleep easily). Negative for: Oriented, Other (appropriate answering with complete sentences) - Laboratory Results Result Diagrams: 04/27/17 18:35 04/27/17 18:35 - ECG O2 Sat by Pulse Oximetry: 96 (RA) Pulse Ox Interpretation: Normal Medical Decision Making Medical Decision Making: Initial Impression: Substance abuse Initial Plan: * EKG * Alcohol serum * Labs * Troponin I * Drug screen, urine * CXR UDS (+) Opiates, barbituates, benzos Scribe Attestation: Documented by Dorota Logan, acting as a scribe for Hnana Francis Provider Scribe Attestation: All medical record entries made by the Scribe were at my direction and personally dictated by me. I have reviewed the chart and agree that the record accurately reflects my personal performance of the history, physical exam, medical decision making, and the department course for this patient. I have also personally directed, reviewed, and agree with the discharge instructions and disposition. Disposition - Clinical Impression Clinical Impression: Substance abuse - Patient ED Disposition Is Patient to be Admitted: No - Disposition Disposition: Routine/Home Disposition Time: 20:00 Condition: STABLE
[2017-04-27 18:38] LABS: BASO % 0.5 % (0.0-2.0); EOS # 0.1 K/uL (0.0-0.7); EOS % 1.5 % (0.0-4.0); HEMATOCRIT 41.1 % (35.0-51.0); LYMPH # 1.8 K/uL (1.0-4.3); LYMPH % 24.2 % (20.0-40.0); MEAN CELL VOLUME 96.9 fl (80.0-94.0); MONO # 0.7 K/uL (0.0-0.8); NEUT # 4.6 K/uL (1.8-7.0); NEUT % 63.8 % (50.0-75.0); RED CELL DISTRIBUTION WIDTH 13.5 % (11.5-14.5); WHITE BLOOD COUNT 7.2 K/uL (4.8-10.8)
[2017-04-27 18:48] LABS: ALB/GLOB RATIO 1.5 (1.0-2.1); ALCOHOL SERUM < 10 mg/dl (0-10); ALKALINE PHOSPHATASE 115 U/L (38-126); ALT/SGPT 28 U/L (21-72); AST/SGOT 21 U/L (17-59); BILIRUBIN,TOTAL 0.3 mg/dl (0.2-1.3); BLOOD UREA NITROGEN 12 mg/dl (9-20); CALCIUM 9.1 mg/dL (8.4-10.2); CARBON DIOXIDE 26 mmol/L (22-30); CHLORIDE 104 mmol/L (98-107); GFR AFRICAN-AMERICAN > 60; GLUCOSE,RANDOM 106 mg/dL (75-110); POTASSIUM 4.1 MMOL/L (3.6-5.0); SODIUM 142 mmol/l (132-148); TOTAL PROTEIN 7.1 G/DL (6.3-8.2)
[2017-04-27 18:55] VITALS: PULSE 74
[2017-04-27 23:11] VITALS: BP 123/68; RESP 14; TEMP 98.2
[2017-04-27 23:50] VITALS: O2SAT 96
--- NOTE | 2017-04-28 11:02 | RAD ---
PROCEDURE: CHEST RADIOGRAPH, 1 VIEW HISTORY: med screening COMPARISON: Comparison is made to 02/01/2017 FINDINGS: LUNGS: Interval appearance of reticular opacities at the lung bases since the previous exam may represent atelectasis. Prominent hilum is again seen. Mild to moderate emphysematous changes are also again noted. PLEURA: No pneumothorax or pleural fluid seen. CARDIOVASCULAR: Normal. OSSEOUS STRUCTURES: No significant abnormalities. VISUALIZED UPPER ABDOMEN: Normal. OTHER FINDINGS: None. IMPRESSION: Bibasilar opacities may represent atelectasis. Otherwise no interval change.
--- NOTE | 2017-04-28 21:50 | CARD ---
APPROVED REPORT EKG Measurement Heart [id number] <Conclusion> Normal sinus rhythm Normal ECG
== END 2017-04-27 23:58 | disposition home or self-care (01) ==
LOC: H.ER 17:42 → H.EROBSV 18:07
PROVIDERS: ADMIT Emergency Medicine; ATTEND Emergency Medicine
DX: T50.904A Poisoning by unspecified drugs, medicaments and biological substances, undetermined, initial encounter (principal); Y92.9 Unspecified place or not applicable; F32.9 Major depressive disorder, single episode, unspecified; R56.9 Unspecified convulsions; R26.81 Unsteadiness on feet
CPT/HCPCS: 71010; 80053; 80320; 80324; 80345; 80346; 80349; 80353; 80358; 80361; 83992; 84484; 85025; 93005; 99285; G0378

== ENCOUNTER 2017-09-25 22:12 | Emergency (ER) | payer OTHER ==
[2017-09-25 22:12] VITALS: BMI 22.1
[2017-09-25] MEDS ORDERED: Sodium Chloride 0.9% 1,000 ML IV STA (22:31)
[2017-09-25 23:09] LABS: BASO % 0.5 % (0.0-2.0); EOS # 0.1 K/uL (0.0-0.7); EOS % 2.2 % (0.0-4.0); HEMOGLOBIN 12.4 g/dL (12.0-18.0); LYMPH # 2.6 K/uL (1.0-4.3); LYMPH % 41.1 % (20.0-40.0); MEAN CELL VOLUME 94.9 fl (80.0-94.0); MEAN CORPUSCULAR HGB CONC 33.8 g/dL (33.0-37.0); MEAN PLATELET VOLUME 6.1 fl (7.2-11.7); MONO # 0.6 K/uL (0.0-0.8); MONO % 9.8 % (0.0-10.0); NEUT # 2.9 K/uL (1.8-7.0); NEUT % 46.4 % (50.0-75.0); NRBC % 0.3 % (0.0-0.0); RBC 3.87 Mil/uL (4.40-5.90); RED CELL DISTRIBUTION WIDTH 12.9 % (11.5-14.5); WHITE BLOOD COUNT 6.2 K/uL (4.8-10.8)
[2017-09-25 23:21] LABS: ALB/GLOB RATIO 1.3 (1.0-2.1); ALBUMIN 3.8 g/dL (3.5-5.0); ALT/SGPT 27 U/L (21-72); AST/SGOT 18 U/L (17-59); BLOOD UREA NITROGEN 22 mg/dl (9-20); CALCIUM 8.8 mg/dL (8.4-10.2); GFR AFRICAN-AMERICAN > 60; GFR NON-AFRICAN AMERICAN > 60; MAGNESIUM 2.2 MG/DL (1.6-2.3)
--- NOTE | 2017-09-25 23:32 | ED PDOC ---
HPI: Psych/Substance Abuse Time Seen by Provider: 09/25/17 22:30 Chief Complaint (Nursing): Alcohol Ingestion Chief Complaint (Provider): Alcohol Ingestion ED Caveat: Intoxicated History Per: Patient History/Exam Limitations: no limitations Onset/Duration Of Symptoms: Mins (prior to arrival ) Current Symptoms Are (Timing): Still Present Additional Complaint(s): 57 year old male brought in by EMS to the ED for evaluation. Patient was found severely lethargic at the train station reporting he was waiting for the [facility]. Denies drinking alcohol and will not answer when asked about doing other drugs. He has a known history of heroine, benzodiazepine and opiate abuse. He reports not drinking in a year and 2 months. History is limited due to intoxication. PMD: unable to provide Past Medical History Reviewed: Historical Data, Nursing Documentation, Vital Signs, Unable To Obtain Vital Signs: Last Vital Signs Temp 97.3 F L 09/25/17 22:13 Pulse 69 09/25/17 22:13 Resp 16 09/25/17 22:13 BP 92/70 L 09/25/17 22:13 Pulse Ox 97 09/25/17 22:13 - Medical History PMH: Asthma, Back Problems, Depression, Seizures Denies: Diabetes, Hepatitis, HIV, HTN, Chronic Kidney Disease, Sexually Transmitted Disease - Family History Family History: States: Unknown Family Hx - Social History Current smoker - smoking cessation education provided: Yes - Immunization History Hx Tetanus Toxoid Vaccination: No Hx Influenza Vaccination: No Hx Pneumococcal Vaccination: No - Home Medications Home Medications: Ambulatory Orders Medication Instructions Recorded Gabapentin [Neurontin] 300 mg PO TID 08/15/16 levETIRAcetam [Keppra] 500 mg PO TID 08/15/16 traMADol [Ultram] 50 mg PO PRN PRN 08/15/16 Tobramycin 0.3% [Tobrex 0.3% Ophth 1 drop OS Q4 #1 bottle 09/27/16 Soln] Albuterol 0.042% [Albuterol 0.042% 3 ml IH PRN PRN 12/31/16 Inhal Stefanie (1.25mg/3ml) UD] Zolpidem [Ambien] 10 mg PO DAILY 12/31/16 - Allergies Allergies/Adverse Reactions: Allergies Allergy/AdvReac Type Severity Reaction Status Date / Time No Known Allergies Allergy Verified 03/28/17 23:09 Review of Systems Review Of Systems: ROS cannot be obtained secondary to pt's inabilty to answer questions. (due to intoxication) - Laboratory Results Result Diagrams: 09/25/17 23:03 09/25/17 23:03 - ECG O2 Sat by Pulse Oximetry: 97 (RA) Pulse Ox Interpretation: Normal Medical Decision Making Medical Decision Making: Time: 22:31 Impression: drug intoxication Initial Plan: --Urine drug --CMP --Alcohol serum --Lactic acid plasma --Magnesium --Phosphorus --CBC Scribe Attestation: Documented by Yudi Rodriguez, acting as a scribe for Hanna Almanzar MD. Provider Scribe Attestation: All medical record entries made by the Scribe were at my direction and personally dictated by me. I have reviewed the chart and agree that the record accurately reflects my personal performance of the history, physical exam, medical decision making, and the department course for this patient. I have also personally directed, reviewed, and agree with the discharge instructions and disposition. Disposition - Disposition Forms: [email or web address] (Taiwanese)
--- NOTE | 2017-09-26 00:17 | ED PDOC ---
- Laboratory Results Result Diagrams: 09/25/17 23:03 09/25/17 23:03 - ECG O2 Sat by Pulse Oximetry: 97 (RA) Pulse Ox Interpretation: Normal Medical Decision Making Medical Decision Making: Time: 00:00 --Patient signed out to me pending sobriety and reevaluation At 5:30 AM patient is AAO x3 and has steady gait with fluent speech Stable upon discharge Dx Opiate abuse Disposition - Clinical Impression Clinical Impression: Opiate abuse, episodic - POA Present On Arrival: None - Disposition Disposition: Routine/Home Disposition Time: 05:30 Condition: STABLE Instructions: Narcotic Abuse (ED) Forms: [facility] (Prydeinig)
[2017-09-26 02:37] VITALS: BP 91/73; PULSE 63; RESP 17; TEMP 97.8
[2017-09-26 06:00] VITALS: O2SAT 97
== END 2017-09-26 05:53 | disposition home or self-care (01) ==
LOC: H.ER 22:12
DX: F11.10 Opioid abuse, uncomplicated (principal); F17.200 Nicotine dependence, unspecified, uncomplicated; J45.909 Unspecified asthma, uncomplicated; Z86.59 Personal history of other mental and behavioral disorders
CPT/HCPCS: 80053; 80320; 82948; 83605; 83735; 84100; 85025; 99283; J7040

== ENCOUNTER 2017-09-26 07:54 | Emergency (ER) | payer OTHER ==
[2017-09-26 08:00] VITALS: BP 128/71; PULSE 77; RESP 16; TEMP 97.7; O2SAT 96; BMI 22.8
--- NOTE | 2017-09-26 08:57 | ED PDOC ---
Lower Extremity Pain/Injury Time Seen by Provider: 09/26/17 08:06 Chief Complaint (Nursing): Alcohol Ingestion Chief Complaint (Provider): Near syncope History Per: Patient, Other (HPD) History/Exam Limitations: no limitations Onset/Duration Of Symptoms: Mins (prior to arrival) Current Symptoms Are (Timing): Still Present Additional Complaint(s): 57 year old male with medical history of seizures and asthma, who presents to the emergency department for an evaluation of unsteady gait witnessed by Julienne HAYDEN prior to arrival. Patient stated he has a chronic history of headaches and back pain. Denied any current headache, chest pain, shortness of breath or abdominal pain. Patient was recently discharged this morning for opiate abuse. PMD: none provided Past Medical History Reviewed: Historical Data, Nursing Documentation, Vital Signs Vital Signs: Last Vital Signs Temp 97.7 F 09/26/17 07:59 Pulse 77 09/26/17 07:59 Resp 16 09/26/17 07:59 BP 128/71 09/26/17 07:59 Pulse Ox 96 09/26/17 07:59 - Medical History PMH: Asthma, Back Problems, Depression, Seizures Denies: Diabetes, Hepatitis, HIV, HTN, Chronic Kidney Disease, Sexually Transmitted Disease - Surgical History Surgical History: Denies: No Surg Hx Other surgeries: left leg - Family History Family History: States: Unknown Family Hx - Social History Current smoker - smoking cessation education provided: No Ex-Smoker (has not smoked in the last 12 months): Yes Alcohol: > 2 Drinks/Day Drugs: Other (heroin) - Immunization History Hx Tetanus Toxoid Vaccination: No Hx Influenza Vaccination: No Hx Pneumococcal Vaccination: No - Home Medications Home Medications: Ambulatory Orders Medication Instructions Recorded Gabapentin [Neurontin] 300 mg PO TID 08/15/16 levETIRAcetam [Keppra] 500 mg PO TID 08/15/16 traMADol [Ultram] 50 mg PO PRN PRN 08/15/16 Tobramycin 0.3% [Tobrex 0.3% Ophth 1 drop OS Q4 #1 bottle 09/27/16 Soln] Albuterol 0.042% [Albuterol 0.042% 3 ml IH PRN PRN 12/31/16 Inhal Stefanie (1.25mg/3ml) UD] Zolpidem [Ambien] 10 mg PO DAILY 12/31/16 - Allergies Allergies/Adverse Reactions: Allergies Allergy/AdvReac Type Severity Reaction Status Date / Time No Known Allergies Allergy Verified 09/26/17 08:03 Review of Systems ROS Statement: Except As Marked, All Systems Reviewed And Found Negative Cardiovascular: Negative for: Chest Pain Respiratory: Negative for: Shortness of Breath Gastrointestinal: Negative for: Abdominal Pain Neurological: Positive for: Dizziness. Negative for: Headache Physical Exam - Reviewed Nursing Documentation Reviewed: Yes Vital Signs Reviewed: Yes - Physical Exam Appears: Positive for: Non-toxic, No Acute Distress Head Exam: Positive for: ATRAUMATIC, NORMAL INSPECTION, NORMOCEPHALIC Neck: Positive for: Normal, Painless ROM, Supple. Negative for: Decreased ROM Cardiovascular/Chest: Positive for: Regular Rate, Rhythm, Chest Non Tender Respiratory: Positive for: Normal Breath Sounds. Negative for: Decreased Breath Sounds, Respiratory Distress Gastrointestinal/Abdominal: Positive for: Normal Exam, Soft. Negative for: Tenderness Extremity: Positive for: Normal ROM (lower). Negative for: Pedal Edema, Calf Tenderness, Deformity Neurologic/Psych: Positive for: Alert, Oriented, Gait (unsteady). Negative for : Motor/Sensory Deficits - ECG O2 Sat by Pulse Oximetry: 96 (RA) Pulse Ox Interpretation: Normal Medical Decision Making Medical Decision Making: Initial Impression: Chronic gait instability Scribe Attestation: Documented by Dorota Logan, acting as a scribe for Marry Brunner MD. Provider Scribe Attestation: All medical record entries made by the Scribe were at my direction and personally dictated by me. I have reviewed the chart and agree that the record accurately reflects my personal performance of the history, physical exam, medical decision making, and the department course for this patient. I have also personally directed, reviewed, and agree with the discharge instructions and disposition. Disposition - Clinical Impression Clinical Impression: Gait instability, Encounter for medical screening examination - Patient ED Disposition Is Patient to be Admitted: No Doctor Will See Patient In The: Office Counseled Patient/Family Regarding: Diagnosis, Need For Followup - Disposition Referrals: Bolivar Farias MD [Medical Doctor] - Disposition: Routine/Home Disposition Time: 09:10 Condition: STABLE Forms: [facility] (Romanian) - POA Present On Arrival: None
== END 2017-09-26 10:55 | disposition home or self-care (01) ==
LOC: H.ER 07:54
DX: R26.89 Other abnormalities of gait and mobility (principal); G40.909 Epilepsy, unspecified, not intractable, without status epilepticus; F32.9 Major depressive disorder, single episode, unspecified; J45.909 Unspecified asthma, uncomplicated; Z87.891 Personal history of nicotine dependence

== ENCOUNTER 2017-09-26 13:14 | Emergency (ER) | payer OTHER ==
[2017-09-26 13:14] VITALS: BMI 22.8
[2017-09-26 13:20] VITALS: BP 137/76; PULSE 94; RESP 18; TEMP 97.4; O2SAT 96
[2017-09-26] MEDS ORDERED: Sodium Chloride 0.9% 1,000 ML IV STA (14:12)
--- NOTE | 2017-09-26 14:13 | ED PDOC ---
HPI: Psych/Substance Abuse Time Seen by Provider: 09/26/17 13:46 Chief Complaint (Nursing): Alcohol Ingestion Chief Complaint (Provider): Substance Ingestion History Per: Patient History/Exam Limitations: no limitations Current Symptoms Are (Timing): Still Present Suicide/Self Injury Attempted (Context): None Modifying Factor(s): Other Additional Complaint(s): 57 year old male with a past medical history of depression is martina into [facility] ED by EMS for possible substance ingestion. The patient admits to taking fioricet. PMD: FAMILY PROVIDER,NO Past Medical History Reviewed: Historical Data, Nursing Documentation, Vital Signs Vital Signs: Last Vital Signs Temp 97.4 F L 09/26/17 13:18 Pulse 94 H 09/26/17 13:18 Resp 18 09/26/17 13:18 BP 137/76 09/26/17 13:18 Pulse Ox 96 09/26/17 13:18 - Medical History PMH: Asthma, Back Problems, Depression, Seizures Denies: Diabetes, Hepatitis, HIV, HTN, Chronic Kidney Disease, Sexually Transmitted Disease - Surgical History Surgical History: No Surg Hx - Family History Family History: States: Unknown Family Hx - Living Arrangements Living Arrangements: Other - Social History Current smoker - smoking cessation education provided: No (Former Smoker) Ex-Smoker (has not smoked in the last 12 months): No Alcohol: None Drugs: Opiates (heroin) - Immunization History Hx Tetanus Toxoid Vaccination: No Hx Influenza Vaccination: No Hx Pneumococcal Vaccination: No - Home Medications Home Medications: Ambulatory Orders Medication Instructions Recorded Gabapentin [Neurontin] 300 mg PO TID 08/15/16 levETIRAcetam [Keppra] 500 mg PO TID 08/15/16 traMADol [Ultram] 50 mg PO PRN PRN 08/15/16 Tobramycin 0.3% [Tobrex 0.3% Ophth 1 drop OS Q4 #1 bottle 09/27/16 Soln] Albuterol 0.042% [Albuterol 0.042% 3 ml IH PRN PRN 12/31/16 Inhal Stefanie (1.25mg/3ml) UD] Zolpidem [Ambien] 10 mg PO DAILY 12/31/16 - Allergies Allergies/Adverse Reactions: Allergies Allergy/AdvReac Type Severity Reaction Status Date / Time No Known Allergies Allergy Verified 09/26/17 13:17 Review of Systems Psych: Positive for: Other (substance intoxication). Negative for: Suicidal ideation Physical Exam - Reviewed Nursing Documentation Reviewed: Yes Vital Signs Reviewed: Yes - Physical Exam Appears: Positive for: Non-toxic, No Acute Distress Head Exam: Positive for: ATRAUMATIC, NORMAL INSPECTION, NORMOCEPHALIC Skin: Positive for: Normal Color, Warm, Dry. Negative for: Rash Eye Exam: Positive for: Normal appearance, EOMI, PERRL. Negative for: Nystagmus Cardiovascular/Chest: Positive for: Regular Rate, Rhythm, Chest Non Tender. Negative for: Tachycardia Respiratory: Positive for: Normal Breath Sounds. Negative for: Wheezing, Respiratory Distress Gastrointestinal/Abdominal: Positive for: Normal Exam, Bowel Sounds, Soft. Negative for: Tenderness, Guarding, Rebound Neurologic/Psych: Positive for: Mood/Affect (lethargic). Negative for: Alert ( responds to verbal stimuli) - Laboratory Results Result Diagrams: 09/26/17 15:05 09/26/17 15:05 - ECG O2 Sat by Pulse Oximetry: 96 (RA) Pulse Ox Interpretation: Normal Medical Decision Making Medical Decision Makin Initial Impression 57 y/o male presenting with substance intoxication Initial Plan: * Acetiminophen * Alcohol Serum * CMP * Salicylate * CBC * NS 1000mls IV 250mls/hr 1700 - Pt more awake. Admits to taking 3 fioricet [employer]. 1930 - Clear speech, steady gait. Pt UOOB to go to the rest room. Documented by Natalia Harris acting as a scribe for Tammy Mata PA-C. All medical record entries made by the Scribe were at my direction and personally dictated by me. I have reviewed the chart and agree that the record accurately reflects my personal performance of the history, physical exam, medical decision making, and the department course for this patient. I have also personally directed, reviewed, and agree with the discharge instructions and disposition. Disposition - Clinical Impression Clinical Impression: Substance abuse - Disposition Disposition Time: 19:40 Condition: STABLE Instructions: Polysubstance Abuse (ED) Forms: [employer] (Bahamian)
[2017-09-26 15:12] LABS: HEMOGLOBIN 11.8 g/dL (12.0-18.0); MEAN CORPUSCULAR HEMOGLOBIN 31.2 pg (27.0-31.0); MEAN CORPUSCULAR HGB CONC 32.5 g/dL (33.0-37.0); RBC 3.77 Mil/uL (4.40-5.90); WHITE BLOOD COUNT 5.6 K/uL (4.8-10.8)
[2017-09-26 15:30] LABS: ALB/GLOB RATIO 1.3 (1.0-2.1); ALBUMIN 3.6 g/dL (3.5-5.0); ALT/SGPT 26 U/L (21-72); AST/SGOT 15 U/L (17-59); BLOOD UREA NITROGEN 13 mg/dl (9-20); CALCIUM 8.6 mg/dL (8.4-10.2); GFR AFRICAN-AMERICAN > 60; GFR NON-AFRICAN AMERICAN > 60
[2017-09-26 15:31] LABS: ACETAMINOPHEN < 10.0 ug/ml (10.0-30.0); SALICYLATE < 1.0 mg/dl
== END 2017-09-26 20:30 | disposition home or self-care (01) ==
LOC: H.ER 13:14
DX: F19.10 Other psychoactive substance abuse, uncomplicated (principal); F32.9 Major depressive disorder, single episode, unspecified; J45.909 Unspecified asthma, uncomplicated; Z87.891 Personal history of nicotine dependence
CPT/HCPCS: 80053; 80320; 80329; 85027; 99284; J7040

== ENCOUNTER 2017-09-27 08:12 | Emergency (ER) | payer OTHER ==
[2017-09-27 08:33] VITALS: BMI 23.8
[2017-09-27] MEDS ORDERED: Sodium Chloride 0.9% 1,000 ML IV STA (08:33)
--- NOTE | 2017-09-27 08:39 | ED PDOC ---
HPI: General Adult Time Seen by Provider: 09/27/17 08:22 Chief Complaint (Nursing): Altered Mental Status Chief Complaint (Provider): Altered Mental Status History Per: EMS History/Exam Limitations: clinical condition Current Symptoms Are (Timing): Still Present Additional Complaint(s): 57 year old male presents to the emergency department via ambulance [place]. As per EMS, patient was cold with a low OX pulse. Patient is non verbal and sometimes follows commands as he chooses. Ambien was found with tablets which was filled on 2017. Past Medical History Reviewed: Historical Data, Nursing Documentation, Vital Signs Vital Signs: Last Vital Signs Temp 98.1 F 09/27/17 08:28 Pulse 56 L 09/27/17 08:55 Resp 19 09/27/17 08:55 BP 105/68 09/27/17 08:55 Pulse Ox 98 09/27/17 12:30 - Medical History PMH: Asthma, Back Problems, Depression, Seizures Denies: Diabetes, Hepatitis, HIV, HTN, Chronic Kidney Disease, Sexually Transmitted Disease - Family History Family History: States: Unknown Family Hx - Social History Current smoker - smoking cessation education provided: No Ex-Smoker (has not smoked in the last 12 months): Yes Alcohol: Other Drugs: Other (Heroin) - Immunization History Hx Tetanus Toxoid Vaccination: No Hx Influenza Vaccination: No Hx Pneumococcal Vaccination: No - Home Medications Home Medications: Ambulatory Orders Medication Instructions Recorded Gabapentin [Neurontin] 300 mg PO TID 08/15/16 levETIRAcetam [Keppra] 500 mg PO TID 08/15/16 traMADol [Ultram] 50 mg PO PRN PRN 08/15/16 Tobramycin 0.3% [Tobrex 0.3% Ophth 1 drop OS Q4 #1 bottle 09/27/16 Soln] Albuterol 0.042% [Albuterol 0.042% 3 ml IH PRN PRN 12/31/16 Inhal Stefanie (1.25mg/3ml) UD] Zolpidem [Ambien] 10 mg PO DAILY 12/31/16 - Allergies Allergies/Adverse Reactions: Allergies Allergy/AdvReac Type Severity Reaction Status Date / Time No Known Allergies Allergy Verified 09/26/17 13:17 Review of Systems Review Of Systems: ROS cannot be obtained secondary to pt's inabilty to answer questions. (Patient is a poor historian with selective answering. Follows some commands) Physical Exam - Reviewed Nursing Documentation Reviewed: Yes Vital Signs Reviewed: Yes - Physical Exam Appears: Positive for: Non-toxic, No Acute Distress Head Exam: Positive for: NORMAL INSPECTION Skin: Positive for: Normal Color, Warm, Dry Eye Exam: Positive for: Normal appearance, EOMI, PERRL ENT: Positive for: Normal ENT Inspection. Negative for: Nasal Congestion, Pharyngeal Erythema Cardiovascular/Chest: Positive for: Regular Rate, Rhythm. Negative for: Murmur Respiratory: Positive for: Decreased Breath Sounds (Clear bilaterally). Negative for: Accessory Muscle Use, Wheezing, Respiratory Distress Gastrointestinal/Abdominal: Positive for: Soft. Negative for: Tenderness Back: Positive for: Normal Inspection. Negative for: L CVA Tenderness, R CVA Tenderness Extremity: Positive for: Normal ROM, Capillary Refill (normal pulses, 3+ bilaterally), Other (4/5 strength). Negative for: Pedal Edema Neurologic/Psych: Positive for: Alert, Other (Patient follows some commands, as he chooses with selective answering. ). Negative for: Motor/Sensory Deficits - Laboratory Results Result Diagrams: 09/27/17 09:00 09/27/17 09:00 Interpretation Of Abn Labs: no acute - ECG ECG: Positive for: Interpreted By Me, Viewed By Me ECG Rhythm: Positive for: Normal QRS, Normal ST Segment, Sinus Rhythm O2 Sat by Pulse Oximetry: 98 (RA) Pulse Ox Interpretation: Normal - CT Scan/US ct Other Rad Studies (CT/US): Read By Radiologist Other Rad Interpretation: no cute - Progress ED Course And Treament: 1200: More awake. Tolerated PO. AAOx3. Ambulated with no issues. During stay has been selective in answering questions he wishes to. Per records, here multiple times for substance abuse. Ambulated with no issues. Poison recommended obs for 6 hrs considering pt. is on benzos. Medical Decision Making Medical Decision Making: Time: 832 Initial Impression: Initial Plan: --EKG --Acetaminophen --Alcohol Serum --CMP --Drug Screen, Urine --Salicylate --Troponin I --CBC w. diff --Sodium Chloride 1L IV --Head CT --Reevaluation Poison control advises to observe patient for 7 hrs. Time: 934 --Head CT FINDINGS: HEMORRHAGE: No acute parenchymal, subarachnoid nor extra-axial hemorrhage. BRAIN: No evidence of large acute infarct. No obvious parenchymal nor extra-axial mass or collection. Re- demonstrated is an apparent dilated perivascular space left inferolateral basal ganglia unchanged from prior exam. . Mild age-appropriate volume loss VENTRICLES: No obstructive hydrocephalus. CALVARIUM: Unremarkable. PARANASAL SINUSES: Minimal mucosal thickening seen within a few ethmoid air cells. MASTOID AIR CELLS: Unremarkable as visualized. No inflammatory changes. OTHER FINDINGS: Questionable mild right periorbital and supraorbital soft tissue swelling IMPRESSION: No acute intracranial hemorrhage. Questionable mild left periorbital -supraorbital soft tissue swelling Scribe Attestation: Documented by Leticia Marcus, acting as a scribe for Bernard Brito MD. Provider Scribe Attestation: All medical record entries made by the Scribe were at my direction and personally dictated by me. I have reviewed the chart and agree that the record accurately reflects my personal performance of the history, physical exam, medical decision making, and the department course for this patient. I have also personally directed, reviewed, and agree with the discharge instructions and disposition. Disposition - Clinical Impression Clinical Impression: Substance abuse - Patient ED Disposition Is Patient to be Admitted: No Counseled Patient/Family Regarding: Studies Performed, Diagnosis, Need For Followup - Disposition Referrals: [facility] [Outside] - 09/29/17 Disposition: Routine/Home Disposition Time: 13:47 Condition: STABLE Additional Instructions: Return if not better in 3 days. Instructions: Polysubstance Abuse (ED)
[2017-09-27 08:56] VITALS: RESP 19
[2017-09-27 09:20] LABS: BASO % 0.3 % (0.0-2.0); EOS # 0.1 K/uL (0.0-0.7); EOS % 0.8 % (0.0-4.0); LYMPH # 1.3 K/uL (1.0-4.3); LYMPH % 19.3 % (20.0-40.0); MEAN CELL VOLUME 95.8 fl (80.0-94.0); MEAN CORPUSCULAR HEMOGLOBIN 31.2 pg (27.0-31.0); MEAN CORPUSCULAR HGB CONC 32.5 g/dL (33.0-37.0); MEAN PLATELET VOLUME 6.1 fl (7.2-11.7); MONO # 0.6 K/uL (0.0-0.8); NEUT # 4.6 K/uL (1.8-7.0); NEUT % 70.6 % (50.0-75.0); RBC 3.85 Mil/uL (4.40-5.90); RED CELL DISTRIBUTION WIDTH 13.1 % (11.5-14.5); WHITE BLOOD COUNT 6.6 K/uL (4.8-10.8)
--- NOTE | 2017-09-27 09:37 | CT ---
PROCEDURE: CT HEAD WITHOUT CONTRAST. HISTORY: headache COMPARISON: Comparison made with prior CT scan 03/27/2017. TECHNIQUE: Axial computed tomography images were obtained through the head/brain without intravenous contrast. Study limited by motion artifact. Radiation dose: Total exam DLP = 1828.80 mGy-cm. This CT exam was performed using one or more of the following dose reduction techniques: Automated exposure control, adjustment of the mA and/or kV according to patient size, and/or use of iterative reconstruction technique. FINDINGS: HEMORRHAGE: No acute parenchymal, subarachnoid nor extra-axial hemorrhage. BRAIN: No evidence of large acute infarct. No obvious parenchymal nor extra-axial mass or collection. Re- demonstrated is an apparent dilated perivascular space left inferolateral basal ganglia unchanged from prior exam. . Mild age-appropriate volume loss VENTRICLES: No obstructive hydrocephalus. CALVARIUM: Unremarkable. PARANASAL SINUSES: Minimal mucosal thickening seen within a few ethmoid air cells. MASTOID AIR CELLS: Unremarkable as visualized. No inflammatory changes. OTHER FINDINGS: Questionable mild right periorbital and supraorbital soft tissue swelling IMPRESSION: No acute intracranial hemorrhage. Questionable mild left periorbital -supraorbital soft tissue swelling
[2017-09-27 09:45] LABS: ACETAMINOPHEN < 10.0 ug/ml (10.0-30.0); SALICYLATE < 1.0 mg/dl
[2017-09-27 09:51] LABS: ALB/GLOB RATIO 1.3 (1.0-2.1); ALBUMIN 3.7 g/dL (3.5-5.0); ALT/SGPT 26 U/L (21-72); AST/SGOT 33 U/L (17-59); BLOOD UREA NITROGEN 10 mg/dl (9-20); CALCIUM 8.7 mg/dL (8.4-10.2); GFR AFRICAN-AMERICAN > 60; GFR NON-AFRICAN AMERICAN > 60
[2017-09-27 09:52] VITALS: O2SAT 98
[2017-09-27 13:48] VITALS: BP 122/71; PULSE 64; TEMP 97.6
[2017-09-27 14:49] LABS: BENZODIAZEPINES, UR NEGATIVE (NEGATIVE); OPIATES, UR NEGATIVE (NEGATIVE); PHENCYCLIDINE, UR NEGATIVE (NEGATIVE)
[2017-09-27 14:54] LABS: BARBITURATES, UR POSITIVE (NEGATIVE)
== END 2017-09-27 15:09 | disposition home or self-care (01) ==
LOC: H.ER 08:12
DX: F19.10 Other psychoactive substance abuse, uncomplicated (principal); F32.9 Major depressive disorder, single episode, unspecified; J45.909 Unspecified asthma, uncomplicated
CPT/HCPCS: 70450; 80053; 80320; 80324; 80329; 80345; 80346; 80349; 80353; 80358; 80361; 82948; 83992; 84484; 85025; 99285; J7040

== ENCOUNTER 2017-10-03 17:31 | Emergency (ER) | payer OTHER ==
[2017-10-03 17:31] VITALS: BMI 23.8
[2017-10-03] MEDS ORDERED: Sodium Chloride 0.9% 2,000 ML IV STA (20:16)
--- NOTE | 2017-10-03 20:19 | ED PDOC ---
HPI: Abdomen Time Seen by Provider: 10/03/17 20:18 Chief Complaint (Nursing): GI Problem Chief Complaint (Provider): vomiting/diarrhea/fever History Per: Patient (57 y/o male here with vomiting/diarrhea/fever since yesterday. Denies any medication use. Has h/o chronic pain associated with neck and sees Dr. Weldon regularly. No h/o surgeries in past.) Past Medical History Reviewed: Historical Data, Nursing Documentation, Vital Signs Vital Signs: Last Vital Signs Temp 102.7 F H 10/03/17 22:16 Pulse 105 H 10/03/17 22:16 Resp 16 10/03/17 22:16 BP 107/53 L 10/03/17 22:16 Pulse Ox 96 10/04/17 00:56 - Medical History PMH: Asthma, Back Problems, Depression, Migraine, Seizures Denies: Diabetes, Hepatitis, HIV, HTN, Chronic Kidney Disease, Sexually Transmitted Disease - Family History Family History: States: Unknown Family Hx - Immunization History Hx Tetanus Toxoid Vaccination: No Hx Influenza Vaccination: No Hx Pneumococcal Vaccination: No - Home Medications Home Medications: Ambulatory Orders Medication Instructions Recorded Gabapentin [Neurontin] 300 mg PO TID 08/15/16 levETIRAcetam [Keppra] 500 mg PO TID 08/15/16 traMADol [Ultram] 50 mg PO PRN PRN 08/15/16 Tobramycin 0.3% [Tobrex 0.3% Ophth 1 drop OS Q4 #1 bottle 09/27/16 Soln] Albuterol 0.042% [Albuterol 0.042% 3 ml IH PRN PRN 12/31/16 Inhal Stefanie (1.25mg/3ml) UD] Zolpidem [Ambien] 10 mg PO DAILY 12/31/16 Dicyclomine [Bentyl] 1 tab PO Q6 PRN #10 tab 10/04/17 Famotidine [Pepcid] 20 mg PO BID #10 tab 10/04/17 Ondansetron [Zofran Odt] 4 mg PO Q8 PRN #10 odt 10/04/17 - Allergies Allergies/Adverse Reactions: Allergies Allergy/AdvReac Type Severity Reaction Status Date / Time No Known Allergies Allergy Verified 10/03/17 17:34 Review of Systems ROS Statement: Except As Marked, All Systems Reviewed And Found Negative Constitutional: Positive for: Fever Physical Exam - Reviewed Nursing Documentation Reviewed: Yes Vital Signs Reviewed: Yes - Physical Exam Appears: Positive for: Well, Non-toxic, No Acute Distress Head Exam: Positive for: ATRAUMATIC, NORMAL INSPECTION, NORMOCEPHALIC Skin: Positive for: Normal Color, Warm, DRY Eye Exam: Positive for: EOMI, Normal appearance, PERRL ENT: Positive for: Normal ENT Inspection Neck: Positive for: Normal, Painless ROM Cardiovascular/Chest: Positive for: Regular Rate, Rhythm Respiratory: Positive for: CNT, Normal Breath Sounds Gastrointestinal/Abdominal: Positive for: Normal Exam, Bowel Sounds, Soft Back: Positive for: Normal Inspection Extremity: Positive for: Normal ROM Neurologic/Psych: Positive for: Alert, Oriented - Laboratory Results Result Diagrams: 10/03/17 20:44 10/03/17 20:44 - ECG O2 Sat by Pulse Oximetry: 96 - Progress ED Course And Treament: pepcid 20 mg iv x 1 dose zofran 4 m gi vx 1 dose NS [address] abd/pelvis: IMPRESSION: - Findings which could represent mild enteritis involving multiple left abdominal small bowel loops. - Mild wall thickening of the distal esophagus. This is a nonspecific finding, but can be seen with mild esophagitis, such as reflux esophagitis. Recommend clinical correlation. - Otherwise, no evidence of significant acute process. - See above for multiple non-emergent findings. Thank you for allowing us to participate in the care of your patient. Dictated and Authenticated by: Marya Lucero MD Disposition - Clinical Impression Clinical Impression: Enteritis - Patient ED Disposition Is Patient to be Admitted: No - Disposition Referrals: Shaheed Boo MD, PhD [Staff Provider] - Disposition: Routine/Home Disposition Time: 00:57 Condition: FAIR Prescriptions: Dicyclomine [Bentyl] 1 tab PO Q6 PRN #10 tab PRN Reason: Pain, Moderate (4-7) Famotidine [Pepcid] 20 mg PO BID #10 tab Ondansetron [Zofran Odt] 4 mg PO Q8 PRN #10 odt PRN Reason: Nausea/Vomiting Instructions: Enteritis (ED) Forms: [employer] (Uzbek), [employer] ([place]) ED School/Work Excuse
[2017-10-03 20:48] LABS: BASO % 0.1 % (0.0-2.0); EOS % 0.2 % (0.0-4.0); LYMPH # 0.2 K/uL (1.0-4.3); LYMPH % 1.7 % (20.0-40.0); MEAN CELL VOLUME 95.9 fl (80.0-94.0); MEAN CORPUSCULAR HEMOGLOBIN 31.9 pg (27.0-31.0); MEAN CORPUSCULAR HGB CONC 33.2 g/dL (33.0-37.0); MEAN PLATELET VOLUME 6.7 fl (7.2-11.7); MONO # 0.5 K/uL (0.0-0.8); MONO % 3.7 % (0.0-10.0); NEUT # 13.2 K/uL (1.8-7.0); NEUT % 94.3 % (50.0-75.0); NRBC % 0.1 % (0.0-0.0); PLATELET COUNT 296 K/uL (130-400); RED CELL DISTRIBUTION WIDTH 13.9 % (11.5-14.5)
[2017-10-03 20:52] LABS: SQUAMOUS EPITHIAL < 1 /hpf (0-5); URINE BACTERIA RARE (<OCC); URINE BILIRUBIN NEGATIVE (NEGATIVE); URINE BLOOD SMALL (NEGATIVE); URINE CLARITY SLIGHTY-CLOUDY (Clear); URINE COLOR YELLOW (YELLOW); URINE GLUCOSE (UA) NEG (Normal); URINE LEUKOCYTE ESTERASE NEG Leu/uL (Negative); URINE NITRATE NEGATIVE (NEGATIVE); URINE PROTEIN NEGATIVE (NEGATIVE); URINE UROBILINOGEN 0.2-1.0 mg/dL (0.2-1.0)
[2017-10-03 21:00] LABS: ALB/GLOB RATIO 1.4 (1.0-2.1); ALBUMIN 4.6 g/dL (3.5-5.0); ALT/SGPT 35 U/L (21-72); AST/SGOT 18 U/L (17-59); BLOOD UREA NITROGEN 15 mg/dl (9-20); CALCIUM 9.3 mg/dL (8.4-10.2); GFR AFRICAN-AMERICAN > 60; GFR NON-AFRICAN AMERICAN > 60; LIPASE 78 U/L (23-300)
[2017-10-03 21:32] LABS: BANDS 2 % (0-2); LYMPHOCYTE 3 % (20-50); MONOCYTE 2 % (0-10); NEUTROPHIL 93 % (42-75); TOTAL CELLS COUNTED 100
[2017-10-03 21:33] LABS: PLATELET ESTIMATE NORMAL (NORMAL)
[2017-10-03 21:34] LABS: LARGE PLATELETS PRESENT
[2017-10-03 21:36] LABS: TOXIC GRANULATION PRESENT
[2017-10-03 22:17] VITALS: BP 107/53
[2017-10-03] MEDS ORDERED: Iohexol 300 100 ML IJ ONE (22:45)
[2017-10-03] MEDS ORDERED: Sodium Chloride 0.9% 50 ML IV ONE (22:45)
--- NOTE | 2017-10-04 00:25 | CT ---
EXAM: CT Abdomen and Pelvis With Intravenous Contrast EXAM DATE/TIME: 10/03/2017 10:06 PM CLINICAL HISTORY: 57 years old, male; Pain and signs and symptoms; Vomiting and other: Diarrhea; Abdominal pain; Generalized; Additional info: R/O appendicitis TECHNIQUE: Axial computed tomography images of the abdomen and pelvis with intravenous contrast. All CT scans at this facility use one or more dose reduction techniques, viz.: automated exposure control; ma/kV adjustment per patient size (including targeted exams where dose is matched to indication; i.e. head); or iterative reconstruction technique. Coronal and sagittal reformatted images were created and reviewed. CONTRAST: 90 mL of [id number] administered intravenously. COMPARISON: No relevant prior studies available. FINDINGS: LOWER THORAX: Mild wall thickening of the distal esophagus. ABDOMEN: LIVER: Hepatomegaly, with the liver measuring 20 cm in length on the coronal images. 2 small low density liver lesions, most likely representing cysts. The larger of these measures 7 mm. GALLBLADDER AND BILE DUCTS: No CT evidence of acute cholecystitis. No evidence of significant biliary ductal dilatation. PANCREAS: No CT evidence of acute pancreatitis. SPLEEN: No acute abnormality of the spleen identified. ADRENALS: No acute abnormality of the adrenal glands identified. KIDNEYS AND URETERS: Incidental fluid density right renal lesion, measuring less than 10 mm. Consistent with the [employer]?s Incidental Findings Committee Report (J Am Judie Radiol 2010): Unless the patient?s specific circumstances suggest otherwise, any cystic kidney lesion less than 1.0 cm not otherwise characterized in this report as possessing suspicious or indeterminate imaging features is/are highly likely to be benign and do not require follow-up imaging or biopsy. No acute abnormality of the kidneys identified. STOMACH AND BOWEL: Mild wall thickening involving multiple jejunal small bowel loops in the left abdomen. This could be due to mild enteritis. Otherwise, no significant abnormality of the bowel is identified. No evidence of diffuse colitis/pancolitis. No evidence of small bowel obstruction. APPENDIX: Appendix is seen, an0d is within normal limits in appearance. PELVIS: BLADDER: No acute abnormality of the bladder identified. REPRODUCTIVE: Prostate gland appears mildly enlarged. ABDOMEN and PELVIS: INTRAPERITONEAL SPACE: No evidence of free intraperitoneal air or fluid. BONES/JOINTS: Bony structures appear demineralized. SOFT TISSUES: No acute abnormality of the visualized soft tissues is seen. VASCULATURE: No evidence of abdominal aortic aneurysm. No evidence of periaortic hemorrhage. LYMPH NODES: No evidence of diffuse lymphadenopathy. IMPRESSION: - Findings which could represent mild enteritis involving multiple left abdominal small bowel loops. - Mild wall thickening of the distal esophagus. This is a nonspecific finding, but can be seen with mild esophagitis, such as reflux esophagitis. Recommend clinical correlation. - Otherwise, no evidence of significant acute process. - See above for multiple non-emergent findings.
[2017-10-04 06:23] VITALS: PULSE 87; RESP 19; TEMP 98.9; O2SAT 98
== END 2017-10-04 06:00 | disposition home or self-care (01) ==
LOC: H.ER 17:31
DX: K52.9 Noninfective gastroenteritis and colitis, unspecified (principal); J45.909 Unspecified asthma, uncomplicated; F32.9 Major depressive disorder, single episode, unspecified
CPT/HCPCS: 74177; 80053; 81003; 83690; 85025; 96374; 96375; 99284; J2405; J7040; Q9967

== ENCOUNTER 2017-10-23 18:16 | Emergency (ER) | payer OTHER ==
[2017-10-23 18:16] VITALS: BMI 23.8
[2017-10-23 20:02] LABS: BASO % 0.6 % (0.0-2.0); EOS # 0.2 K/uL (0.0-0.7); EOS % 2.9 % (0.0-4.0); HEMOGLOBIN 12.6 g/dL (12.0-18.0); LYMPH # 2.2 K/uL (1.0-4.3); LYMPH % 34.2 % (20.0-40.0); MEAN CELL VOLUME 96.2 fl (80.0-94.0); MEAN CORPUSCULAR HEMOGLOBIN 31.7 pg (27.0-31.0); MEAN CORPUSCULAR HGB CONC 32.9 g/dL (33.0-37.0); MEAN PLATELET VOLUME 6.3 fl (7.2-11.7); MONO # 0.8 K/uL (0.0-0.8); MONO % 12.6 % (0.0-10.0); NEUT # 3.2 K/uL (1.8-7.0); NEUT % 49.7 % (50.0-75.0); NRBC % 0.2 % (0.0-0.0); RBC 3.97 Mil/uL (4.40-5.90); RED CELL DISTRIBUTION WIDTH 13.3 % (11.5-14.5); WHITE BLOOD COUNT 6.5 K/uL (4.8-10.8)
--- NOTE | 2017-10-23 20:03 | ED PDOC ---
Syncope/Near Syncope/Dizziness Time Seen by Provider: 10/23/17 18:20 Chief Complaint (Nursing): Dizziness/Lightheaded Chief Complaint (Provider): Dizziness/Lightheaded History Per: Patient History/Exam Limitations: no limitations Onset/Duration Of Symptoms: Days (x1) Current Symptoms Are (Timing): Still Present Additional History Per: Patient Additional Complaint(s): 57 year old male with a past medical history of asthma, migraines, and seizures , who presents to the ED complaining of dizziness prior to arrival. Patient states he felt dizzy and tripped on his foot, but denies and loss of consciousness. Denies any medical complaints at this time. PMD: Chata Weldon Past Medical History Reviewed: Historical Data, Nursing Documentation, Vital Signs Vital Signs: Last Vital Signs Temp 98.2 F 10/23/17 18:17 Pulse 60 10/23/17 18:17 Resp 16 10/23/17 18:17 BP 146/87 10/23/17 18:17 Pulse Ox 100 10/23/17 18:17 - Medical History PMH: Asthma, Back Problems, Depression, Migraine, Seizures Denies: Diabetes, Hepatitis, HIV, HTN, Chronic Kidney Disease, Sexually Transmitted Disease - Surgical History Surgical History: No Surg Hx - Family History Family History: States: Unknown Family Hx - Social History Ex-Smoker (has not smoked in the last 12 months): Yes Alcohol: Occasional Drugs: Opiates (heroin) - Immunization History Hx Tetanus Toxoid Vaccination: No Hx Influenza Vaccination: No Hx Pneumococcal Vaccination: No - Home Medications Home Medications: Ambulatory Orders Medication Instructions Recorded Gabapentin [Neurontin] 300 mg PO TID 08/15/16 levETIRAcetam [Keppra] 500 mg PO TID 08/15/16 traMADol [Ultram] 50 mg PO PRN PRN 08/15/16 Tobramycin 0.3% [Tobrex 0.3% Ophth 1 drop OS Q4 #1 bottle 09/27/16 Soln] Albuterol 0.042% [Albuterol 0.042% 3 ml IH PRN PRN 12/31/16 Inhal Stefanie (1.25mg/3ml) UD] Zolpidem [Ambien] 10 mg PO DAILY 12/31/16 Dicyclomine [Bentyl] 1 tab PO Q6 PRN #10 tab 10/04/17 Famotidine [Pepcid] 20 mg PO BID #10 tab 10/04/17 Ondansetron [Zofran Odt] 4 mg PO Q8 PRN #10 odt 10/04/17 - Allergies Allergies/Adverse Reactions: Allergies Allergy/AdvReac Type Severity Reaction Status Date / Time No Known Allergies Allergy Verified 10/23/17 18:17 Review of Systems ROS Statement: Except As Marked, All Systems Reviewed And Found Negative Physical Exam - Reviewed Nursing Documentation Reviewed: Yes Vital Signs Reviewed: Yes - Physical Exam Appears: Positive for: Non-toxic, No Acute Distress Head Exam: Positive for: ATRAUMATIC, NORMAL INSPECTION, NORMOCEPHALIC Skin: Positive for: Normal Color, Warm, Dry. Negative for: Rash Eye Exam: Positive for: EOMI, Normal appearance, PERRL Neck: Positive for: Normal, Painless ROM, Supple Cardiovascular/Chest: Positive for: Regular Rate, Rhythm. Negative for: Murmur Respiratory: Positive for: Normal Breath Sounds. Negative for: Respiratory Distress Gastrointestinal/Abdominal: Positive for: Normal Exam, Bowel Sounds, Soft. Negative for: Tenderness Back: Positive for: Normal Inspection. Negative for: L CVA Tenderness, R CVA Tenderness, Vertebral Tenderness Extremity: Positive for: Normal ROM. Negative for: Pedal Edema, Deformity Neurologic/Psych: Positive for: Alert (somnolent, but arousable), Oriented. Negative for: Motor/Sensory Deficits - Laboratory Results Result Diagrams: 10/23/17 19:30 10/23/17 19:30 - ECG O2 Sat by Pulse Oximetry: 100 (RA) Pulse Ox Interpretation: Normal Medical Decision Making Medical Decision Making: Time: 19:16 Initial Impression: mechanical fall, R/o head trauma, r/o electrolyte abnormality pt admits to drug abuse Initial Plan: --CT Head w/o contrast --EKG --CMP --Urine Drug Screen --CBC w/ differential --Reevaluation --Labs reviewed, patient was awake. Urine toxicology presented substance abuse. Patient is gait and will be discharged. vitals stable. Clinical Impression: Polysubstance abuse Upon provider evaluation patient is medically stable, and requires no further treatment in the ED at this time. Patient will be discharged. Counseling was provided and all questions were answered regarding diagnosis and need for follow up with PMD. Scribe Attestation: Documented by Aric Babcock and Imelda Jain, acting as a scribe for Junior Solano MD. Provider Scribe Attestation: All medical record entries made by the Scribe were at my direction and personally dictated by me. I have reviewed the chart and agree that the record accurately reflects my personal performance of the history, physical exam, medical decision making, and the department course for this patient. I have also personally directed, reviewed, and agree with the discharge instructions and disposition. Disposition - Clinical Impression Clinical Impression: Polysubstance abuse - Patient ED Disposition Is Patient to be Admitted: No Counseled Patient/Family Regarding: Studies Performed, Diagnosis, Need For Followup - Disposition Referrals: [facility] [Outside] [facility] [Outside] Disposition: Routine/Home Disposition Time: 22:00 Condition: IMPROVED Additional Instructions: follow up with your doctor in 1-2 days return to the ED with any worsening or concerning symptoms Instructions: Polysubstance Abuse Forms: [employer] (Faroese)
[2017-10-23 20:13] LABS: ALB/GLOB RATIO 1.3 (1.0-2.1); ALBUMIN 4.1 g/dL (3.5-5.0); ALT/SGPT 31 U/L (21-72); AST/SGOT 24 U/L (17-59); BLOOD UREA NITROGEN 15 mg/dl (9-20); CALCIUM 8.6 mg/dL (8.4-10.2); GFR AFRICAN-AMERICAN > 60; GFR NON-AFRICAN AMERICAN > 60
--- NOTE | 2017-10-23 21:14 | CT ---
EXAM: CT Head Without Intravenous Contrast EXAM DATE/TIME: 10/23/2017 7:16 PM CLINICAL HISTORY: 57 years old, male; Pain; Headache; Headache not specified TECHNIQUE: Axial computed tomography images of the head/brain without intravenous contrast. All CT scans at this facility use one or more dose reduction techniques, viz.: automated exposure control; ma/kV adjustment per patient size (including targeted exams where dose is matched to indication; i.e. head); or iterative reconstruction technique. Coronal and sagittal reformatted images were created and reviewed. COMPARISON: No relevant prior studies available. FINDINGS: BRAIN: Focal area of low density in the left basal ganglia, most compatible with an old/chronic lacunar infarct. No significant acute abnormality identified. No acute hemorrhage seen within the brain. No acute extra-axial fluid collections visualized. No evidence of significant mass effect within the brain. VENTRICLES: No evidence of significant hydrocephalus. BONES/JOINTS: Left nasal bone fracture, which is most likely chronic. Recommend clinical correlation. No additional acute fractures seen. SOFT TISSUES: No acute abnormality of the visualized soft tissues is seen. SINUSES: Visualized paranasal sinuses appear clear. MASTOID AIR CELLS: Mastoid air cells appear clear. IMPRESSION: - No acute findings seen within the brain. - See above for remaining findings.
[2017-10-23 23:00] LABS: PHENCYCLIDINE, UR NEGATIVE (NEGATIVE)
[2017-10-23 23:04] LABS: BARBITURATES, UR POSITIVE (NEGATIVE); BENZODIAZEPINES, UR NEGATIVE (NEGATIVE); OPIATES, UR POSITIVE (NEGATIVE)
[2017-10-24 01:12] VITALS: BP 133/81; PULSE 81; RESP 18; TEMP 98.3
--- NOTE | 2017-10-24 23:44 | CARD ---
APPROVED REPORT EKG Measurement Heart [id number] <Conclusion> Sinus bradycardia Otherwise normal ECG
[2017-10-26 20:49] VITALS: O2SAT 100
== END 2017-10-24 00:33 | disposition home or self-care (01) ==
LOC: H.ER 18:16
DX: R42 Dizziness and giddiness (principal); G40.909 Epilepsy, unspecified, not intractable, without status epilepticus; F32.9 Major depressive disorder, single episode, unspecified; J45.909 Unspecified asthma, uncomplicated

== ENCOUNTER 2017-12-19 06:20 | Emergency (ER) | payer OTHER ==
[2017-12-19 06:21] VITALS: BMI 23.8
[2017-12-19 06:49] VITALS: RESP 18
[2017-12-19 07:50] LABS: BASO % 0.5 % (0.0-2.0); EOS # 0.4 K/uL (0.0-0.7); EOS % 6.2 % (0.0-4.0); HEMOGLOBIN 13.1 g/dL (12.0-18.0); LYMPH # 1.9 K/uL (1.0-4.3); MEAN CELL VOLUME 95.9 fl (80.0-94.0); MEAN CORPUSCULAR HEMOGLOBIN 32.2 pg (27.0-31.0); MEAN CORPUSCULAR HGB CONC 33.6 g/dL (33.0-37.0); MEAN PLATELET VOLUME 6.2 fl (7.2-11.7); MONO # 0.8 K/uL (0.0-0.8); MONO % 12.3 % (0.0-10.0); NEUT # 3.3 K/uL (1.8-7.0); RBC 4.06 Mil/uL (4.40-5.90); RED CELL DISTRIBUTION WIDTH 13.5 % (11.5-14.5); WHITE BLOOD COUNT 6.5 K/uL (4.8-10.8)
--- NOTE | 2017-12-19 07:53 | ED PDOC ---
HPI: Psych/Substance Abuse Time Seen by Provider: 12/19/17 07:16 Chief Complaint (Nursing): Substance Abuse Chief Complaint (Provider): Substance Abuse ED Caveat: Intoxicated History Per: Patient History/Exam Limitations: no limitations Additional Complaint(s): Stewart Chirinos is a 57 years old male with past medical history of asthma, migraine, depression and seizure brought to the ED after being found on ground past a station. Patient admits taking Tramadol for mood elevation. He offers no medical complaints. PMD: non provided Past Medical History Reviewed: Historical Data, Nursing Documentation, Vital Signs Vital Signs: Last Vital Signs Temp 99.2 F 12/19/17 06:44 Pulse 97 H 12/19/17 06:44 Resp 18 12/19/17 06:44 BP 118/81 12/19/17 06:44 Pulse Ox 97 12/19/17 06:44 - Medical History PMH: Asthma, Back Problems, Depression, Migraine, Seizures Denies: Diabetes, Hepatitis, HIV, HTN, Chronic Kidney Disease, Sexually Transmitted Disease - Surgical History Surgical History: No Surg Hx - Family History Family History: States: Unknown Family Hx - Social History Current smoker - smoking cessation education provided: Yes Alcohol: Social Drugs: Other (Tramadol) - Immunization History Hx Tetanus Toxoid Vaccination: No Hx Influenza Vaccination: No Hx Pneumococcal Vaccination: No - Home Medications Home Medications: Ambulatory Orders Medication Instructions Recorded Gabapentin [Neurontin] 300 mg PO TID 08/15/16 levETIRAcetam [Keppra] 500 mg PO TID 08/15/16 traMADol [Ultram] 50 mg PO PRN PRN 08/15/16 Tobramycin 0.3% [Tobrex 0.3% Ophth 1 drop OS Q4 #1 bottle 09/27/16 Soln] Albuterol 0.042% [Albuterol 0.042% 3 ml IH PRN PRN 12/31/16 Inhal Stefanie (1.25mg/3ml) UD] Zolpidem [Ambien] 10 mg PO DAILY 12/31/16 Dicyclomine [Bentyl] 1 tab PO Q6 PRN #10 tab 10/04/17 Famotidine [Pepcid] 20 mg PO BID #10 tab 10/04/17 Ondansetron [Zofran Odt] 4 mg PO Q8 PRN #10 odt 10/04/17 - Allergies Allergies/Adverse Reactions: Allergies Allergy/AdvReac Type Severity Reaction Status Date / Time No Known Allergies Allergy Verified 10/23/17 18:17 Review of Systems ROS Statement: Except As Marked, All Systems Reviewed And Found Negative Physical Exam - Reviewed Nursing Documentation Reviewed: Yes Vital Signs Reviewed: Yes - Physical Exam Head Exam: Positive for: NORMOCEPHALIC Eye Exam: Positive for: Other (Pupils are constricted) Neck: Positive for: Normal, Supple Cardiovascular/Chest: Positive for: Regular Rate, Rhythm. Negative for: Murmur Respiratory: Positive for: Normal Breath Sounds. Negative for: Respiratory Distress Neurologic/Psych: Positive for: Alert (arousal to verbal stimuli) - Laboratory Results Result Diagrams: 12/19/17 07:40 12/19/17 07:40 - ECG O2 Sat by Pulse Oximetry: 97 (RA) Pulse Ox Interpretation: Normal Medical Decision Making Medical Decision Making: Time:741 Initial Impression: Substance abuse, intoxication Initial Plan: --Alcohol serum --CMP --Drug Screen --Urine dipstick --CBC --PTT --Prothrombin Time --Urinalysis Pt ate meal, AAOX3, steady gait. Scribe Attestation: Documented by Lilibeth Ventura, acting as a scribe for Tesha Peters MD Provider Scribe Attestation: All medical record entries made by the Scribe were at my direction and personally dictated by me. I have reviewed the chart and agree that the record accurately reflects my personal performance of the history, physical exam, medical decision making, and the department course for this patient. I have also personally directed, reviewed, and agree with the discharge instructions and disposition. Disposition - Clinical Impression Clinical Impression: Substance abuse - Disposition Referrals: [facility] [Outside] Disposition: Routine/Home Disposition Time: 14:03 Condition: IMPROVED Instructions: Drug Abuse and Drug Addiction (DC), Drug Abuse Treatment Forms: [employer] (Lao)
[2017-12-19 08:03] LABS: ALB/GLOB RATIO 1.3 (1.0-2.1); ALBUMIN 3.8 g/dL (3.5-5.0); ALT/SGPT 37 U/L (21-72); AST/SGOT 24 U/L (17-59); BLOOD UREA NITROGEN 17 mg/dl (9-20); CALCIUM 8.9 mg/dL (8.4-10.2); GFR AFRICAN-AMERICAN > 60; GFR NON-AFRICAN AMERICAN > 60
[2017-12-19 08:09] LABS: PROTHROMBIN TIME 10.2 Seconds (9.8-13.1)
[2017-12-19 08:10] LABS: INR 0.9 (0.9-1.2); PARTIAL THROMBOPLASTIN TIME 32.6 Seconds (25.6-37.1)
--- NOTE | 2017-12-19 14:28 | ED PDOC ---
- Laboratory Results Result Diagrams: 12/19/17 07:40 12/19/17 07:40 - ECG O2 Sat by Pulse Oximetry: 98 Medical Decision Making Medical Decision Makin:00: Transfer of staff from Dr. Peters to Dr. Almanzar. Patient has prescription opiate overdose and is pending sobriety. 14:44: On reevalution, the patient has eaten in the ED, and gait is unsteady. 1900: Pt now ambulating without difficulty. Stable for dc. Scribe Attestation: Documented by Petra Madrid, acting as a scribe for Hanna Almanzar MD. Provider Scribe Attestation: All medical record entries made by the Scribe were at my direction and personally dictated by me. I have reviewed the chart and agree that the record accurately reflects my personal performance of the history, physical exam, medical decision making, and the department course for this patient. I have also personally directed, reviewed, and agree with the discharge instructions and disposition. Disposition Doctor Will See Patient In The: Office Counseled Patient/Family Regarding: Studies Performed, Diagnosis, Need For Followup - Clinical Impression Clinical Impression: Substance abuse - POA Present On Arrival: None - Disposition Referrals: [facility] [Outside] Disposition: Routine/Home Disposition Time: 14:44 Condition: IMPROVED Instructions: Drug Abuse and Drug Addiction (DC), Drug Abuse Treatment Forms: [employer] (Sami)
[2017-12-19] MEDS ORDERED: Sodium Chloride 0.9% 1,000 ML IV STA (14:49)
[2017-12-19 18:03] VITALS: BP 137/87; PULSE 87; TEMP 98.3
[2017-12-19 18:18] LABS: SQUAMOUS EPITHIAL < 1 /hpf (0-5); URINE BACTERIA OCC (<OCC); URINE BILIRUBIN NEGATIVE (NEGATIVE); URINE BLOOD NEGATIVE (NEGATIVE); URINE CLARITY SLIGHTY-CLOUDY (Clear); URINE COLOR YELLOW (YELLOW); URINE GLUCOSE (UA) NEG (Normal); URINE LEUKOCYTE ESTERASE NEG Leu/uL (Negative); URINE PROTEIN NEGATIVE (NEGATIVE); URINE UROBILINOGEN 0.2-1.0 mg/dL (0.2-1.0)
[2017-12-19 18:24] LABS: PHENCYCLIDINE, UR NEGATIVE (NEGATIVE)
[2017-12-19 18:32] LABS: BARBITURATES, UR POSITIVE (NEGATIVE); BENZODIAZEPINES, UR NEGATIVE (NEGATIVE); OPIATES, UR NEGATIVE (NEGATIVE)
[2017-12-20 18:28] VITALS: O2SAT 97
== END 2017-12-19 19:04 | disposition home or self-care (01) ==
LOC: H.ER 06:20
DX: F19.10 Other psychoactive substance abuse, uncomplicated (principal); F17.200 Nicotine dependence, unspecified, uncomplicated; Z86.59 Personal history of other mental and behavioral disorders; J45.909 Unspecified asthma, uncomplicated; R56.9 Unspecified convulsions
CPT/HCPCS: 80053; 80320; 80324; 80345; 80346; 80349; 80353; 80358; 80361; 81003; 82948; 83992; 85025; 85610; 85730; 96360; 99285; J7040

== ENCOUNTER 2018-01-02 09:31 | Emergency (ER) | payer OTHER ==
[2018-01-02 09:31] VITALS: BMI 23.8
[2018-01-02 10:05] VITALS: RESP 18
[2018-01-02 11:15] VITALS: O2SAT 99
[2018-01-02] MEDS ORDERED: Permethrin 5% CREAM TOP STA (12:18)
--- NOTE | 2018-01-02 13:54 | ED PDOC ---
HPI: General Adult Time Seen by Provider: 01/02/18 10:15 Chief Complaint (Nursing): Abnormal Skin Integrity Chief Complaint (Provider): I think i have bed bugs History Per: Patient History/Exam Limitations: no limitations Current Symptoms Are (Timing): Still Present Severity: Mild Recently: Seen In ED Additional Complaint(s): 57yo male lives in longterm presents c/o pruritus and concern for having bed bugs. Denies fever, SOB, headache, falls, chest pain, suicidal thoughts or alcohol intake today. He notes occassional heartburn, most recently this morning, burning "indigestion " after eating. Denies radiation of pain. Past Medical History Reviewed: Historical Data, Nursing Documentation, Vital Signs Vital Signs: Last Vital Signs Temp 98 F 01/02/18 15:30 Pulse 81 01/02/18 15:30 Resp 18 01/02/18 15:30 BP 111/70 01/02/18 15:30 Pulse Ox 99 01/02/18 15:30 - Medical History PMH: Asthma, Back Problems, Depression, Migraine, Seizures Denies: Diabetes, Hepatitis, HIV, HTN, Chronic Kidney Disease, Sexually Transmitted Disease - Family History Family History: States: Unknown Family Hx - Living Arrangements Living Arrangements: Other (longterm) - Social History Current smoker - smoking cessation education provided: Yes - Immunization History Hx Tetanus Toxoid Vaccination: No Hx Influenza Vaccination: No Hx Pneumococcal Vaccination: No - Home Medications Home Medications: Ambulatory Orders Medication Instructions Recorded Gabapentin [Neurontin] 300 mg PO TID 08/15/16 levETIRAcetam [Keppra] 500 mg PO BID 08/15/16 Acetaminophen/Butalbital/Caf 1 tab PO BID 01/04/18 [Fioricet] Naproxen PO DAILY 01/04/18 Zoloft 100 mg PO DAILY 01/04/18 - Allergies Allergies/Adverse Reactions: Allergies Allergy/AdvReac Type Severity Reaction Status Date / Time No Known Allergies Allergy Verified 01/04/18 18:04 Review of Systems ROS Statement: Except As Marked, All Systems Reviewed And Found Negative Constitutional: Negative for: Fever, Sweats Cardiovascular: Negative for: Palpitations Respiratory: Negative for: Cough Gastrointestinal: Positive for: Abdominal Pain (burning). Negative for: Nausea Genitourinary Male: Negative for: Dysuria Musculoskeletal: Negative for: Neck Pain Skin: Negative for: Rash, Lesions Neurological: Negative for: Weakness Psych: Negative for: Anxiety, Suicidal ideation Physical Exam - Reviewed Nursing Documentation Reviewed: Yes Vital Signs Reviewed: Yes - Physical Exam Appears: Positive for: Well, Non-toxic, No Acute Distress Head Exam: Positive for: ATRAUMATIC, NORMAL INSPECTION, NORMOCEPHALIC Skin: Positive for: Normal Color, Warm, DRY Eye Exam: Positive for: EOMI, Normal appearance, PERRL ENT: Positive for: Normal ENT Inspection Neck: Positive for: Normal, Painless ROM Cardiovascular/Chest: Positive for: Regular Rate, Rhythm Respiratory: Positive for: CNT, Normal Breath Sounds Gastrointestinal/Abdominal: Positive for: Normal Exam, Soft Back: Positive for: Normal Inspection Extremity: Positive for: Normal ROM Neurologic/Psych: Positive for: Alert, Oriented. Negative for: Motor/Sensory Deficits, Aphasia - ECG O2 Sat by Pulse Oximetry: 99 Medical Decision Making Medical Decision Making: patient decontaminated in shower permethrin ordered glucose and EKG otherwise normal/. Disposition - Clinical Impression Clinical Impression: Infestation (skin) - Patient ED Disposition Is Patient to be Admitted: No Counseled Patient/Family Regarding: Studies Performed, Diagnosis, Need For Followup - Disposition Referrals: [facility] [Outside] Disposition: Routine/Home Disposition Time: 13:30 Condition: STABLE Additional Instructions: You were treated empirically for scabies and stable for return to longterm as needed. Instructions: Scabies (DC) Forms: [employer] (Indonesian)
--- NOTE | 2018-01-02 18:39 | CARD ---
APPROVED REPORT EKG Measurement Heart [id number] <Conclusion> Sinus bradycardia Otherwise normal ECG
[2018-01-02 19:29] VITALS: BP 111/70; PULSE 81; TEMP 98
== END 2018-01-02 19:29 | disposition home or self-care (01) ==
LOC: H.ER 09:31
DX: B88.9 Infestation, unspecified (principal); F17.200 Nicotine dependence, unspecified, uncomplicated; J45.909 Unspecified asthma, uncomplicated; Z86.59 Personal history of other mental and behavioral disorders

== ENCOUNTER 2018-01-02 23:02 | Emergency (ER) | payer OTHER ==
[2018-01-02 23:02] VITALS: BMI 23.8
[2018-01-03 01:56] LABS: BASO % 0.5 % (0.0-2.0); EOS # 0.5 K/uL (0.0-0.7); EOS % 8.7 % (0.0-4.0); HEMOGLOBIN 13.2 g/dL (12.0-18.0); LYMPH # 1.9 K/uL (1.0-4.3); LYMPH % 29.7 % (20.0-40.0); MEAN CELL VOLUME 96.2 fl (80.0-94.0); MEAN CORPUSCULAR HEMOGLOBIN 31.4 pg (27.0-31.0); MEAN CORPUSCULAR HGB CONC 32.7 g/dL (33.0-37.0); MEAN PLATELET VOLUME 6.4 fl (7.2-11.7); MONO # 0.9 K/uL (0.0-0.8); MONO % 14.5 % (0.0-10.0); NEUT # 2.9 K/uL (1.8-7.0); NEUT % 46.6 % (50.0-75.0); RBC 4.19 Mil/uL (4.40-5.90); RED CELL DISTRIBUTION WIDTH 13.4 % (11.5-14.5); WHITE BLOOD COUNT 6.3 K/uL (4.8-10.8)
[2018-01-03 02:07] LABS: ALB/GLOB RATIO 1.3 (1.0-2.1); ALBUMIN 3.9 g/dL (3.5-5.0); ALT/SGPT 33 U/L (21-72); AST/SGOT 21 U/L (17-59); BLOOD UREA NITROGEN 18 mg/dl (9-20); CALCIUM 8.3 mg/dL (8.4-10.2); GFR AFRICAN-AMERICAN > 60; GFR NON-AFRICAN AMERICAN > 60
[2018-01-03 02:08] LABS: SALICYLATE < 1.0 mg/dl
[2018-01-03 02:14] LABS: INR 0.9 (0.9-1.2); PARTIAL THROMBOPLASTIN TIME 32.8 Seconds (25.6-37.1); PROTHROMBIN TIME 9.8 Seconds (9.8-13.1)
--- NOTE | 2018-01-03 03:01 | ED PDOC ---
HPI: Psych/Substance Abuse Time Seen by Provider: 01/02/18 23:48 Chief Complaint (Nursing): Psychiatric Evaluation History Per: Patient History/Exam Limitations: no limitations Onset/Duration Of Symptoms: Days (x 2) Current Symptoms Are (Timing): Still Present Additional Complaint(s): 57-year-old undomicilied male presents to ED for psychiatric evaluation. Patient reports "suicidal" going on for 2 days. Patient was seen today in the morning for scabies today and was discharged. Patient complains he has been feeling sad today after he was diagnosed with scabies. Patient states he took 10 fioricet pills throughout the day. Patient reports taking pills in addition to taking regular medications. (-) chest pain, (-) abdominal pain. Patient [place]. PMD: Provider TBD. Past Medical History Reviewed: Historical Data, Nursing Documentation, Vital Signs Vital Signs: Last Vital Signs Temp 97.3 F L 01/02/18 23:25 Pulse 63 01/02/18 23:25 Resp 18 01/02/18 23:25 BP 119/79 01/02/18 23:25 Pulse Ox 97 01/02/18 23:25 - Medical History PMH: Asthma, Back Problems, Depression, Migraine, Seizures Denies: Diabetes, Hepatitis, HIV, HTN, Chronic Kidney Disease, Sexually Transmitted Disease - Surgical History Surgical History: No Surg Hx - Family History Family History: States: Unknown Family Hx - Immunization History Hx Tetanus Toxoid Vaccination: No Hx Influenza Vaccination: No Hx Pneumococcal Vaccination: No - Home Medications Home Medications: Ambulatory Orders Medication Instructions Recorded Gabapentin [Neurontin] 300 mg PO TID 08/15/16 levETIRAcetam [Keppra] 500 mg PO TID 08/15/16 traMADol [Ultram] 50 mg PO PRN PRN 08/15/16 Tobramycin 0.3% [Tobrex 0.3% Ophth 1 drop OS Q4 #1 bottle 09/27/16 Soln] Albuterol 0.042% [Albuterol 0.042% 3 ml IH PRN PRN 12/31/16 Inhal Stefanie (1.25mg/3ml) UD] Zolpidem [Ambien] 10 mg PO DAILY 12/31/16 Dicyclomine [Bentyl] 1 tab PO Q6 PRN #10 tab 10/04/17 Famotidine [Pepcid] 20 mg PO BID #10 tab 10/04/17 Ondansetron [Zofran Odt] 4 mg PO Q8 PRN #10 odt 10/04/17 - Allergies Allergies/Adverse Reactions: Allergies Allergy/AdvReac Type Severity Reaction Status Date / Time No Known Allergies Allergy Verified 01/02/18 23:25 Review of Systems ROS Statement: Except As Marked, All Systems Reviewed And Found Negative Cardiovascular: Negative for: Chest Pain Gastrointestinal: Negative for: Abdominal Pain Psych: Positive for: Suicidal ideation. Negative for: Other (Homicidal ideation ) Physical Exam - Reviewed Nursing Documentation Reviewed: Yes Vital Signs Reviewed: Yes - Physical Exam Appears: Positive for: No Acute Distress Head Exam: Positive for: ATRAUMATIC, NORMAL INSPECTION, NORMOCEPHALIC Skin: Positive for: Normal Color, Warm, Dry Eye Exam: Positive for: EOMI, Normal appearance, PERRL ENT: Positive for: Normal ENT Inspection Neck: Positive for: Normal Cardiovascular/Chest: Positive for: Regular Rate, Rhythm Respiratory: Positive for: Normal Breath Sounds. Negative for: Respiratory Distress Gastrointestinal/Abdominal: Positive for: Normal Exam Back: Positive for: Normal Inspection Extremity: Positive for: Normal ROM. Negative for: Deformity Neurologic/Psych: Positive for: Alert, Oriented (x 3), Mood/Affect (Calm, cooperactive) - Laboratory Results Result Diagrams: 01/03/18 01:53 01/03/18 01:53 - ECG O2 Sat by Pulse Oximetry: 97 (RA) Pulse Ox Interpretation: Normal Medical Decision Making Medical Decision Making: Time: 00:27 Impression(s): Depression with suicidal ideations, possible intentional overdose Plan: - EKG - Acetaminophen - Alcohol Serum - CMP - Drug Screen, Urine - Salicylate - ED Urine Dipstick - CBC (with differentials) - 1:1 Observation Time: 00:42 - PTT - PT Vital signs are stable. Labs reviewed. In my opinion there are no current acute medical conditions that contraindicate the placement of this patient in a psychiatric unit. Time: 02:40 - Crisis evaluation Patient to be signed out to Dr. Brunner @ 07:00, pending crisis evaluation. Scribe Attestation: Documented by Justin Herbert, acting as a scribe for Danica Henning MD. Provider Scribe Attestation: All medical record entries made by the Scribe were at my direction and personally dictated by me. I have reviewed the chart and agree that the record accurately reflects my personal performance of the history, physical exam, medical decision making, and the department course for this patient. I have also personally directed, reviewed, and agree with the discharge instructions and disposition. Disposition - Clinical Impression Clinical Impression: Mood disorder, Alcohol related disorder - Patient ED Disposition Is Patient to be Admitted: Transfer of Care Counseled Patient/Family Regarding: Studies Performed, Diagnosis - Disposition Disposition: Transfer of Care Disposition Time: 07:00 Condition: STABLE Instructions: Effects of Alcohol on Your Health, Screening for Depression Forms: [employer] (Portuguese), [facility] ED School/Work Excuse Patient Signed Over To: Marry Brunenr
[2018-01-03 06:34] LABS: BARBITURATES, UR POSITIVE (NEGATIVE); BENZODIAZEPINES, UR NEGATIVE (NEGATIVE); OPIATES, UR NEGATIVE (NEGATIVE); PHENCYCLIDINE, UR NEGATIVE (NEGATIVE)
--- NOTE | 2018-01-03 07:33 | ED PDOC ---
- Laboratory Results Result Diagrams: 01/03/18 01:53 01/03/18 01:53 - ECG O2 Sat by Pulse Oximetry: 97 (RA) Medical Decision Making Medical Decision Making: Time: 0700 - Patient signed to me by Dr. Henning, pending crisis evaluation. Scribe Attestation: Documented by Janusz Townsend, acting as a scribe for Dr. Hollie MD. Provider Scribe Attestation: All medical record entries made by the Scribe were at my direction and personally dictated by me. I have reviewed the chart and agree that the record accurately reflects my personal performance of the history, physical exam, medical decision making, and the department course for this patient. I have also personally directed, reviewed, and agree with the discharge instructions and disposition. patient seen by crisis and cleared for discharge by Dr. Rooney. Dx: mood disorder, alcoholism Disposition Doctor Will See Patient In The: Office Counseled Patient/Family Regarding: Diagnosis, Need For Followup - Clinical Impression Clinical Impression: Mood disorder, Alcohol related disorder - POA Present On Arrival: None - Disposition Disposition: Routine/Home Disposition Time: 08:33 Condition: STABLE Forms: [employer] (Maltese), [facility] ED School/Work Excuse
[2018-01-03 09:32] VITALS: PULSE 68; TEMP 97.9
[2018-01-03 09:38] VITALS: BP 122/69; RESP 18
--- NOTE | 2018-01-03 13:00 | CARD ---
APPROVED REPORT EKG Measurement Heart [id number] ID [id number] <Conclusion> Sinus bradycardia Early repolarization Otherwise normal ECG
[2018-01-03 22:37] VITALS: O2SAT 97
== END 2018-01-03 09:37 | disposition home or self-care (01) ==
LOC: H.ER 23:02
DX: F10.14 Alcohol abuse with alcohol-induced mood disorder (principal); B86 Scabies; F32.9 Major depressive disorder, single episode, unspecified

== ENCOUNTER 2018-01-04 13:07 | Emergency (ER) | payer OTHER ==
[2018-01-04 13:07] VITALS: BMI 23.8
[2018-01-04 13:15] VITALS: BP 151/88; PULSE 53; RESP 18; TEMP 97; O2SAT 98
--- NOTE | 2018-01-04 13:25 | ED PDOC ---
HPI: Psych/Substance Abuse Time Seen by Provider: 01/04/18 13:15 Chief Complaint (Nursing): Psychiatric Evaluation Chief Complaint (Provider): Suicidal History Per: Patient History/Exam Limitations: no limitations Onset/Duration Of Symptoms: Days (today) Current Symptoms Are (Timing): Still Present Additional Complaint(s): Pt. with suicidal thoughts. No action on thoughts. Is homeless. No nausea, vomit, diarrhea, weakness, headaches, dizziness. No drugs or etoh. Not homicidal. Past Medical History Reviewed: Nursing Documentation, Vital Signs Vital Signs: Last Vital Signs Temp 97 F L 01/04/18 13:12 Pulse 53 L 01/04/18 13:12 Resp 18 01/04/18 13:12 BP 151/88 H 01/04/18 13:12 Pulse Ox 98 01/04/18 13:12 - Medical History PMH: Back Problems, Depression, Seizures Denies: Diabetes, Hepatitis, HIV, HTN, Chronic Kidney Disease, Sexually Transmitted Disease - Family History Family History: States: Unknown Family Hx - Immunization History Hx Tetanus Toxoid Vaccination: No Hx Influenza Vaccination: No Hx Pneumococcal Vaccination: No - Home Medications Home Medications: Ambulatory Orders Medication Instructions Recorded Gabapentin [Neurontin] 300 mg PO TID 08/15/16 levETIRAcetam [Keppra] 500 mg PO TID 08/15/16 traMADol [Ultram] 50 mg PO PRN PRN 08/15/16 Tobramycin 0.3% [Tobrex 0.3% Ophth 1 drop OS Q4 #1 bottle 09/27/16 Soln] Albuterol 0.042% [Albuterol 0.042% 3 ml IH PRN PRN 12/31/16 Inhal Stefanie (1.25mg/3ml) UD] Zolpidem [Ambien] 10 mg PO DAILY 12/31/16 Dicyclomine [Bentyl] 1 tab PO Q6 PRN #10 tab 10/04/17 Famotidine [Pepcid] 20 mg PO BID #10 tab 10/04/17 Ondansetron [Zofran Odt] 4 mg PO Q8 PRN #10 odt 10/04/17 - Allergies Allergies/Adverse Reactions: Allergies Allergy/AdvReac Type Severity Reaction Status Date / Time No Known Allergies Allergy Verified 01/04/18 13:12 Review of Systems ROS Statement: Except As Marked, All Systems Reviewed And Found Negative Psych: Positive for: Depression, Suicidal ideation Physical Exam - Reviewed Nursing Documentation Reviewed: Yes Vital Signs Reviewed: Yes - Physical Exam Appears: Positive for: Non-toxic, No Acute Distress Head Exam: Positive for: ATRAUMATIC, NORMAL INSPECTION, NORMOCEPHALIC Skin: Positive for: Normal Color, Warm, DRY Eye Exam: Positive for: EOMI, Normal appearance, PERRL ENT: Positive for: Normal ENT Inspection Neck: Positive for: Normal, Painless ROM Cardiovascular/Chest: Positive for: Regular Rate, Rhythm Respiratory: Positive for: CNT, Normal Breath Sounds Gastrointestinal/Abdominal: Positive for: Normal Exam, Soft. Negative for: Tenderness Back: Positive for: Normal Inspection. Negative for: L CVA Tenderness, R CVA Tenderness Extremity: Positive for: Normal ROM. Negative for: Tenderness, Pedal Edema Neurologic/Psych: Positive for: Alert, Oriented. Negative for: Motor/Sensory Deficits - ECG O2 Sat by Pulse Oximetry: 98 Pulse Ox Interpretation: Normal - Progress ED Course And Treament: 1335: Stable. AAOx3. Pain free. Crisis saw pt. Dr. Toribio rascon dc. Pt. seen yesterday for the same. Disposition - Clinical Impression Clinical Impression: Depressed - Patient ED Disposition Is Patient to be Admitted: No Counseled Patient/Family Regarding: Diagnosis, Need For Followup - Disposition Referrals: [facility] [Outside] - 01/05/18 Disposition: Routine/Home Disposition Time: 13:36 Condition: STABLE Additional Instructions: Return if not better in 3 days. Instructions: Depression
== END 2018-01-04 14:10 | disposition home or self-care (01) ==
LOC: H.ER 13:07
DX: F32.9 Major depressive disorder, single episode, unspecified (principal)

== ENCOUNTER 2018-01-18 07:29 | Emergency (ER) | payer OTHER ==
[2018-01-18 07:29] VITALS: BMI 23.8
--- NOTE | 2018-01-18 08:48 | ED PDOC ---
HPI: General Adult Time Seen by Provider: 01/18/18 08:07 Chief Complaint (Nursing): Abnormal Skin Integrity Chief Complaint (Provider): Lice History Per: Patient History/Exam Limitations: no limitations Onset/Duration Of Symptoms: Days (today) Additional Complaint(s): Pt. states he has lice. No pain, weakness, headaches, chest pain, itching, rashes, dyspnea, numbness, tingles, dizziness. Is homeless and lives in the [facility]. Past Medical History Reviewed: Nursing Documentation, Vital Signs - Medical History PMH: Asthma, Back Problems, Depression, Migraine, Seizures Denies: Diabetes, Hepatitis, HIV, HTN, Chronic Kidney Disease, Sexually Transmitted Disease - Family History Family History: States: Unknown Family Hx - Social History Alcohol: None Drugs: Denies - Immunization History Hx Tetanus Toxoid Vaccination: No Hx Influenza Vaccination: No Hx Pneumococcal Vaccination: No - Home Medications Home Medications: Ambulatory Orders Medication Instructions Recorded levETIRAcetam [Keppra] 500 mg PO BID 08/15/16 Acetaminophen/Butalbital/Caf 1 tab PO BID 01/04/18 [Fioricet] Naproxen PO DAILY 01/04/18 Zoloft 100 mg PO DAILY 01/04/18 Gabapentin [Neurontin] 300 mg PO TID #60 cap 01/13/18 Sertraline [Zoloft] 100 mg PO DAILY #30 tab 01/13/18 levETIRAcetam [Keppra] 500 mg PO BID #60 tab 01/13/18 traZODone [Desyrel] 100 mg PO HS #30 tab 01/13/18 - Allergies Allergies/Adverse Reactions: Allergies Allergy/AdvReac Type Severity Reaction Status Date / Time No Known Allergies Allergy Verified 01/04/18 18:04 Review of Systems Constitutional: Negative for: Fever, Weakness Eyes: Negative for: Vision Change Cardiovascular: Negative for: Chest Pain Respiratory: Negative for: Cough, Shortness of Breath Gastrointestinal: Negative for: Nausea, Vomiting, Abdominal Pain, Diarrhea Musculoskeletal: Negative for: Neck Pain, Back Pain Skin: Negative for: Rash Neurological: Negative for: Weakness, Numbness Physical Exam - Reviewed Nursing Documentation Reviewed: Yes Vital Signs Reviewed: Yes - Physical Exam Appears: Positive for: Well, Non-toxic, No Acute Distress Head Exam: Positive for: ATRAUMATIC, NORMAL INSPECTION, NORMOCEPHALIC Skin: Positive for: Normal Color, Warm, DRY Eye Exam: Positive for: EOMI, Normal appearance, PERRL ENT: Positive for: Normal ENT Inspection Neck: Positive for: Normal, Painless ROM Cardiovascular/Chest: Positive for: Regular Rate, Rhythm Respiratory: Positive for: CNT, Normal Breath Sounds Gastrointestinal/Abdominal: Positive for: Normal Exam, Soft. Negative for: Tenderness Back: Positive for: Normal Inspection. Negative for: L CVA Tenderness, R CVA Tenderness Extremity: Positive for: Normal ROM. Negative for: Tenderness, Pedal Edema Neurologic/Psych: Positive for: Alert, Oriented - Progress ED Course And Treament: 848: Pt. was taken to the decon room and cleaned. No lice found by staff. On physical no rashes. Nontender exam. FU with pcp. Has no other complaints. AAOx3. Tolerated PO. Disposition - Clinical Impression Clinical Impression: Homelessness - Patient ED Disposition Is Patient to be Admitted: No Counseled Patient/Family Regarding: Diagnosis, Need For Followup - Disposition Referrals: [facility] [Outside] Disposition: Routine/Home Disposition Time: 08:00 Condition: STABLE Instructions: Lice
[2018-01-18 09:14] VITALS: BP 135/80; PULSE 75; RESP 16; TEMP 98; O2SAT 99
== END 2018-01-18 09:29 | disposition home or self-care (01) ==
LOC: H.ER 07:29
DX: J45.909 Unspecified asthma, uncomplicated (principal); Z59.0 Homelessness; Z86.59 Personal history of other mental and behavioral disorders

== ENCOUNTER 2018-01-20 08:13 | Emergency (ER) | payer OTHER ==
[2018-01-20 08:18] VITALS: BMI 22.1
[2018-01-20] MEDS ORDERED: Sodium Chloride 0.9% 1,000 ML IV STA (08:30)
--- NOTE | 2018-01-20 08:35 | ED PDOC ---
HPI: General Adult Time Seen by Provider: 01/20/18 08:20 Chief Complaint (Nursing): Chest Pain Chief Complaint (Provider): Headache History Per: Patient History/Exam Limitations: no limitations Onset/Duration Of Symptoms: Days (today) Additional Complaint(s): Pt. states he has a migraine to the left front after waking up. Like his usual headaches. No numbness, tingles, weakness, neck pain. Not the worst in his life. Is a mild ache. No injury. Also has a cough and nasal congestion. Has chest pain mild with the cough. No dyspnea, nausea, vomit, diarrhea. Is homeless and came from the nursing home. Past Medical History Reviewed: Historical Data, Nursing Documentation, Vital Signs Vital Signs: Last Vital Signs Temp 97 F L 01/20/18 08:16 Pulse 61 01/20/18 09:00 Resp BP 134/85 01/20/18 08:16 Pulse Ox 98 01/20/18 10:28 - Medical History PMH: Asthma, Back Problems, Depression, Migraine, Seizures Denies: Diabetes, Hepatitis, HIV, HTN, Chronic Kidney Disease, Sexually Transmitted Disease - Family History Family History: States: Unknown Family Hx - Immunization History Hx Tetanus Toxoid Vaccination: No Hx Influenza Vaccination: No Hx Pneumococcal Vaccination: No - Home Medications Home Medications: Ambulatory Orders Medication Instructions Recorded levETIRAcetam [Keppra] 500 mg PO BID 08/15/16 Acetaminophen/Butalbital/Caf 1 tab PO BID 01/04/18 [Fioricet] Naproxen PO DAILY 01/04/18 Zoloft 100 mg PO DAILY 01/04/18 Gabapentin [Neurontin] 300 mg PO TID #60 cap 01/13/18 Sertraline [Zoloft] 100 mg PO DAILY #30 tab 01/13/18 levETIRAcetam [Keppra] 500 mg PO BID #60 tab 01/13/18 traZODone [Desyrel] 100 mg PO HS #30 tab 01/13/18 - Allergies Allergies/Adverse Reactions: Allergies Allergy/AdvReac Type Severity Reaction Status Date / Time No Known Allergies Allergy Verified 01/04/18 18:04 Review of Systems ROS Statement: Except As Marked, All Systems Reviewed And Found Negative ENT: Positive for: Nose Congestion Cardiovascular: Positive for: Chest Pain Respiratory: Positive for: Cough Neurological: Positive for: Headache. Negative for: Weakness, Numbness, Dizziness Physical Exam - Reviewed Nursing Documentation Reviewed: Yes Vital Signs Reviewed: Yes - Physical Exam Appears: Positive for: Non-toxic, No Acute Distress Head Exam: Positive for: ATRAUMATIC, NORMAL INSPECTION, NORMOCEPHALIC Skin: Positive for: Normal Color, Warm, DRY Eye Exam: Positive for: EOMI, Normal appearance, PERRL ENT: Positive for: Normal ENT Inspection Neck: Positive for: Normal, Painless ROM, Supple Cardiovascular/Chest: Positive for: Regular Rate, Rhythm Respiratory: Positive for: CNT, Normal Breath Sounds Gastrointestinal/Abdominal: Positive for: Normal Exam, Soft. Negative for: Tenderness Back: Positive for: Normal Inspection. Negative for: L CVA Tenderness, R CVA Tenderness Extremity: Positive for: Normal ROM. Negative for: Tenderness, Pedal Edema Neurologic/Psych: Positive for: Alert, air bag curer II-XII, Oriented. Negative for: Motor/Sensory Deficits, Aphasia, Facial Droop - Laboratory Results Result Diagrams: 01/20/18 09:15 01/20/18 09:15 Interpretation Of Abn Labs: no acute - ECG ECG: Positive for: Interpreted By Me, Viewed By Md ECG Rhythm: Positive for: Normal QRS, Normal ST Segment, Sinus Rhythm O2 Sat by Pulse Oximetry: 98 Pulse Ox Interpretation: Normal - Radiology X-Ray: Interpreted by Md, Viewed By Md X-Ray Interpretation: No Acute Disease - CT Scan/US ct Other Rad Studies (CT/US): Read By Radiologist Other Rad Interpretation: no acute - Progress ED Course And Treament: 1120: Stable. AAOx3. Pain free. Tolerated PO. Fu with pcp. Multiple ER visits for same and other issues. Ambulated with no issues. Disposition - Clinical Impression Clinical Impression: Headache, URI (upper respiratory infection) - Patient ED Disposition Is Patient to be Admitted: No Counseled Patient/Family Regarding: Studies Performed, Diagnosis, Need For Followup, Rx Given - Disposition Referrals: [facility] [Outside] - 01/21/18 Disposition: Routine/Home Disposition Time: 10:21 Condition: STABLE Additional Instructions: Return if not better in 3 days. Instructions: Headache, Adult, Viral Upper Respiratory Infection, Adult (DC)
[2018-01-20 09:26] LABS: BASO % 0.3 % (0.0-2.0); EOS # 0.1 K/uL (0.0-0.7); EOS % 2.5 % (0.0-4.0); HEMOGLOBIN 12.4 g/dL (12.0-18.0); LYMPH # 0.8 K/uL (1.0-4.3); LYMPH % 14.1 % (20.0-40.0); MEAN CELL VOLUME 95.6 fl (80.0-94.0); MEAN CORPUSCULAR HEMOGLOBIN 32.6 pg (27.0-31.0); MEAN CORPUSCULAR HGB CONC 34.1 g/dL (33.0-37.0); MEAN PLATELET VOLUME 6.2 fl (7.2-11.7); MONO # 0.6 K/uL (0.0-0.8); MONO % 9.9 % (0.0-10.0); NEUT # 4.4 K/uL (1.8-7.0); NEUT % 73.2 % (50.0-75.0); NRBC % 0.1 % (0.0-0.0); RBC 3.8 Mil/uL (4.40-5.90); RED CELL DISTRIBUTION WIDTH 13.5 % (11.5-14.5)
[2018-01-20 09:32] LABS: PARTIAL THROMBOPLASTIN TIME 30.6 Seconds (25.6-37.1); PROTHROMBIN TIME 10.8 Seconds (9.8-13.1)
[2018-01-20 09:41] LABS: ALB/GLOB RATIO 1.1 (1.0-2.1); ALBUMIN 3.6 g/dL (3.5-5.0); ALT/SGPT 36 U/L (21-72); AST/SGOT 17 U/L (17-59); BLOOD UREA NITROGEN 7 mg/dl (9-20); CALCIUM 8.9 mg/dL (8.4-10.2); GFR AFRICAN-AMERICAN > 60; GFR NON-AFRICAN AMERICAN > 60
--- NOTE | 2018-01-20 11:08 | CT ---
PROCEDURE: CT HEAD WITHOUT CONTRAST. HISTORY: headache COMPARISON: Unenhanced head CT 10/23/2017. TECHNIQUE: Axial computed tomography images were obtained through the head/brain without intravenous contrast. Radiation dose: Total exam DLP = 870.74 mGy-cm. This CT exam was performed using one or more of the following dose reduction techniques: Automated exposure control, adjustment of the mA and/or kV according to patient size, and/or use of iterative reconstruction technique. FINDINGS: HEMORRHAGE: No intracranial hemorrhage. BRAIN: Normal vivas-white matter differentiation and density are appreciated throughout the cerebrum and cerebellum with the brainstem appearing unremarkable as well. There is no mass effect. There is no suspicious extra-axial fluid collection and the midline brain anatomy appears diffusely unremarkable. VENTRICLES: Unremarkable. No hydrocephalus. CALVARIUM: Unremarkable. PARANASAL SINUSES: Unremarkable as visualized. No significant inflammatory changes. MASTOID AIR CELLS: Evidence of current or prior chronic mastoiditis at mid to posterior left mastoid air cells. OTHER FINDINGS: None. IMPRESSION: No apparent abnormal intracranial findings. Evidence of current or prior left mastoiditis.
--- NOTE | 2018-01-20 12:28 | RAD ---
HISTORY: Pain COMPARISON: 07/04/2017 TECHNIQUE: Chest PA and lateral FINDINGS: LUNGS: No active pulmonary disease. PLEURA: No significant pleural effusion identified. No pneumothorax apparent. CARDIOVASCULAR: No radiographic findings to suggest acute or significant cardiovascular disease. OSSEOUS STRUCTURES: No significant abnormalities. VISUALIZED UPPER ABDOMEN: Normal. OTHER FINDINGS: None. IMPRESSION: No active disease. No significant interval change compared to the prior examination(s). Concordant results with the preliminary interpretation rendered by the emergency department physician procedure.
[2018-01-20 13:15] VITALS: RESP 16
[2018-01-20 13:31] VITALS: BP 115/70; PULSE 76; TEMP 97.7; O2SAT 97
--- NOTE | 2018-01-20 13:44 | CARD ---
APPROVED REPORT EKG Measurement Heart [id number] <Conclusion> Normal sinus rhythm Normal ECG
== END 2018-01-20 13:31 | disposition home or self-care (01) ==
LOC: H.ER 08:13
DX: R51 Headache (principal); J06.9 Acute upper respiratory infection, unspecified; J45.909 Unspecified asthma, uncomplicated; Z59.0 Homelessness
CPT/HCPCS: 70450; 71046; 80053; 82948; 84484; 85025; 85610; 85730; 93005; 96374; 99284; J2765; J7040

== ENCOUNTER 2018-01-30 06:57 | Emergency (ER) | payer OTHER ==
[2018-01-30 06:57] VITALS: BMI 22.1
[2018-01-30] MEDS ORDERED: Sodium Chloride 0.9% 1,000 ML IV STA (07:24)
--- NOTE | 2018-01-30 07:34 | ED PDOC ---
HPI: General Adult Chief Complaint (Nursing): Abdominal Pain Chief Complaint (Provider): Dizziness History Per: Patient History/Exam Limitations: no limitations Onset/Duration Of Symptoms: Days (x3) Have you had recent travel within the past 21 days to any of the following countries: [place], [place], [place] or [place]?: No Current Symptoms Are (Timing): Still Present Additional Complaint(s): 57 y/o male with a history of seizures presents to the ED for dizziness. Patient states symptoms began 3 days ago. He reports a chronic numbness in the first three fingers of the right hand. Patient is on the medication Kepra which he takes daily. PMD: none provided Past Medical History Reviewed: Historical Data, Nursing Documentation, Vital Signs Vital Signs: Last Vital Signs Temp 97.8 F 01/30/18 11:55 Pulse 71 01/30/18 11:55 Resp 18 01/30/18 11:55 BP 116/74 01/30/18 11:55 Pulse Ox 100 01/30/18 11:55 - Medical History PMH: Asthma, Back Problems, Depression, Migraine, Seizures Denies: Diabetes, Hepatitis, HIV, HTN, Chronic Kidney Disease, Sexually Transmitted Disease - Surgical History Surgical History: No Surg Hx - Family History Family History: States: Unknown Family Hx - Social History Current smoker - smoking cessation education provided: Yes Ex-Smoker (has not smoked in the last 12 months): No Alcohol: None Drugs: Denies - Immunization History Hx Tetanus Toxoid Vaccination: No Hx Influenza Vaccination: No Hx Pneumococcal Vaccination: No - Home Medications Home Medications: Ambulatory Orders Medication Instructions Recorded levETIRAcetam [Keppra] 500 mg PO BID 08/15/16 Acetaminophen/Butalbital/Caf 1 tab PO BID 01/04/18 [Fioricet] Naproxen PO DAILY 01/04/18 Zoloft 100 mg PO DAILY 01/04/18 Gabapentin [Neurontin] 300 mg PO TID #60 cap 01/13/18 Sertraline [Zoloft] 100 mg PO DAILY #30 tab 01/13/18 levETIRAcetam [Keppra] 500 mg PO BID #60 tab 01/13/18 traZODone [Desyrel] 100 mg PO HS #30 tab 01/13/18 Meclizine [Meclizine*] 25 mg PO Q6 PRN #20 tab 01/30/18 Dicyclomine [Dicyclomine HCl] 10 mg PO Q8 #10 cap 02/02/18 Doxycycline Hyclate 100 mg PO BID #20 capsule 02/02/18 - Allergies Allergies/Adverse Reactions: Allergies Allergy/AdvReac Type Severity Reaction Status Date / Time No Known Allergies Allergy Verified 02/02/18 13:28 Review of Systems ROS Statement: Except As Marked, All Systems Reviewed And Found Negative Neurological: Positive for: Numbness (to the right first three fingers), Dizziness Physical Exam - Reviewed Nursing Documentation Reviewed: Yes Vital Signs Reviewed: Yes - Physical Exam Appears: Positive for: Non-toxic, No Acute Distress Head Exam: Positive for: ATRAUMATIC, NORMOCEPHALIC Skin: Positive for: Normal Color, Warm, Dry Eye Exam: Positive for: EOMI, Normal appearance, PERRL Cardiovascular/Chest: Positive for: Regular Rate, Rhythm. Negative for: Murmur Respiratory: Positive for: Normal Breath Sounds. Negative for: Respiratory Distress Gastrointestinal/Abdominal: Positive for: Normal Exam, Soft. Negative for: Tenderness Extremity: Positive for: Normal ROM Neurologic/Psych: Positive for: Alert, Oriented (x3) - Laboratory Results Result Diagrams: 01/30/18 07:50 01/30/18 07:50 - ECG ECG Rhythm: Positive for: Sinus Rhythm (normal) Interpretation Of ECG: Early repolarization Rate: 60 O2 Sat by Pulse Oximetry: 98 (RA) Pulse Ox Interpretation: Normal Medical Decision Making Medical Decision Making: Time: 07:12 Impression: Chronic dizziness, chronic peripheral neuropathy Initial Plan: * CAT Scan head w/o contrast * EKG * UDip * CBC * PTT * Prothrombin Time * Chest X-Ray * Levetiracetam Stat * IV Fluids * Glucose Check * Urinalysis CAT Scan head w/o contrast results... FINDINGS: HEMORRHAGE: No intracranial hemorrhage. BRAIN: No mass effect or edema. No atrophy or chronic microvascular ischemic changes. Left basal ganglia lacunar infarction redemonstrated. VENTRICLES: Unremarkable. No hydrocephalus. CALVARIUM: Unremarkable. PARANASAL SINUSES: Unremarkable as visualized. No significant inflammatory changes. MASTOID AIR CELLS: Trace dependent left mastoid air cell opacification. OTHER FINDINGS: None. IMPRESSION: No acute intracranial pathology. 9:30 Chest X-Ray Results... No changes and no infiltrates. Labs were unremarkable. Scribe Attestation: Documented by Patrick Menchaca acting as a scribe Tesha Peters MD. MD [place]ocho Attestation: All medical record entries made by the Scribe were at my direction and personally dictated by me. I have reviewed the chart and agree that the record accurately reflects my personal performance of the history, physical exam, medical decision making, and the department course for this patient. I have also personally directed, reviewed, and agree with the discharge instructions and disposition. Disposition - Clinical Impression Clinical Impression: Vertigo, Peripheral neuropathy - Disposition Referrals: Dudley Agarwal MD [Staff Provider] - Disposition: Routine/Home Disposition Time: 10:32 Condition: STABLE Prescriptions: Meclizine [Meclizine*] 25 mg PO Q6 PRN #20 tab PRN Reason: Dizziness Instructions: Vertigo (a Type of Dizziness), Peripheral Neuropathy Forms: [employer] (Swedish)
[2018-01-30 08:10] LABS: PARTIAL THROMBOPLASTIN TIME 27.2 Seconds (25.6-37.1); PROTHROMBIN TIME 10.5 Seconds (9.8-13.1)
[2018-01-30 08:11] LABS: BASO % 0.3 % (0.0-2.0); EOS # 0.1 K/uL (0.0-0.7); EOS % 0.9 % (0.0-4.0); HEMOGLOBIN 12.1 g/dL (12.0-18.0); LYMPH # 2.6 K/uL (1.0-4.3); LYMPH % 22.6 % (20.0-40.0); MEAN CELL VOLUME 96.9 fl (80.0-94.0); MEAN CORPUSCULAR HEMOGLOBIN 31.9 pg (27.0-31.0); MEAN CORPUSCULAR HGB CONC 32.9 g/dL (33.0-37.0); MEAN PLATELET VOLUME 6.1 fl (7.2-11.7); MONO # 1.2 K/uL (0.0-0.8); MONO % 10.2 % (0.0-10.0); NEUT # 7.5 K/uL (1.8-7.0); RBC 3.78 Mil/uL (4.40-5.90); WHITE BLOOD COUNT 11.4 K/uL (4.8-10.8)
[2018-01-30 08:32] LABS: ALB/GLOB RATIO 1.2 (1.0-2.1); ALBUMIN 3.6 g/dL (3.5-5.0); ALT/SGPT 29 U/L (21-72); AST/SGOT 23 U/L (17-59); BLOOD UREA NITROGEN 25 mg/dl (9-20); CALCIUM 8.8 mg/dL (8.4-10.2); GFR AFRICAN-AMERICAN > 60; GFR NON-AFRICAN AMERICAN > 60
--- NOTE | 2018-01-30 09:05 | CT ---
PROCEDURE: CT HEAD WITHOUT CONTRAST. HISTORY: Dizziness COMPARISON: CT head dated 01/20/2018. TECHNIQUE: Axial computed tomography images were obtained through the head/brain without intravenous contrast. Radiation dose: Total exam DLP = 1530.6 mGy-cm. This CT exam was performed using one or more of the following dose reduction techniques: Automated exposure control, adjustment of the mA and/or kV according to patient size, and/or use of iterative reconstruction technique. FINDINGS: HEMORRHAGE: No intracranial hemorrhage. BRAIN: No mass effect or edema. No atrophy or chronic microvascular ischemic changes. Left basal ganglia lacunar infarction redemonstrated. VENTRICLES: Unremarkable. No hydrocephalus. CALVARIUM: Unremarkable. PARANASAL SINUSES: Unremarkable as visualized. No significant inflammatory changes. MASTOID AIR CELLS: Trace dependent left mastoid air cell opacification. OTHER FINDINGS: None. IMPRESSION: No acute intracranial pathology.
[2018-01-30 10:01] LABS: URINE BILIRUBIN NEGATIVE (NEGATIVE); URINE BLOOD NEGATIVE (NEGATIVE); URINE CLARITY CLEAR (Clear); URINE COLOR YELLOW (YELLOW); URINE GLUCOSE (UA) NEG (Normal); URINE LEUKOCYTE ESTERASE NEG Leu/uL (Negative); URINE PROTEIN NEGATIVE (NEGATIVE); URINE UROBILINOGEN 0.2-1.0 mg/dL (0.2-1.0)
--- NOTE | 2018-01-30 10:02 | RAD ---
HISTORY: Dizziness COMPARISON: Chest radiograph dated 01/20/2018 FINDINGS: LUNGS: No active pulmonary disease. PLEURA: No significant pleural effusion identified. Limited evaluation for pneumothorax as the chin obscures the apices. CARDIOVASCULAR: Atherosclerotic aortic calcifications. Cardiomediastinal silhouette within normal limits. OSSEOUS STRUCTURES: Unchanged. VISUALIZED UPPER ABDOMEN: Normal. OTHER FINDINGS: None. IMPRESSION: No active disease.
--- NOTE | 2018-01-30 10:15 | CARD ---
APPROVED REPORT EKG Measurement Heart [id number] <Conclusion> Normal sinus rhythm ST elevation, probably due to early repolarization Borderline ECG
[2018-01-30 11:56] VITALS: BP 116/74; RESP 18; TEMP 97.8
[2018-02-05 08:36] VITALS: PULSE 60; O2SAT 98
== END 2018-01-30 11:50 | disposition home or self-care (01) ==
LOC: H.ER 06:57
DX: R42 Dizziness and giddiness (principal); G62.9 Polyneuropathy, unspecified; F17.200 Nicotine dependence, unspecified, uncomplicated; Z86.59 Personal history of other mental and behavioral disorders; J45.909 Unspecified asthma, uncomplicated; R56.9 Unspecified convulsions
CPT/HCPCS: 70450; 71045; 80053; 80177; 81003; 82948; 85025; 85610; 85730; 93005; 99284; J7030

== ENCOUNTER 2018-01-30 19:37 | Emergency (ER) | payer OTHER ==
[2018-01-30 19:37] VITALS: BMI 22.1
[2018-01-30 19:50] VITALS: TEMP 98; O2SAT 100
--- NOTE | 2018-01-30 21:04 | ED PDOC ---
Syncope/Near Syncope/Dizziness Chief Complaint (Nursing): Dizziness/Lightheaded Chief Complaint (Provider): Dizziness/Lightheaded History Per: Patient History/Exam Limitations: no limitations Onset/Duration Of Symptoms: Hrs Current Symptoms Are (Timing): Still Present Additional Complaint(s): 57 year old homeless male presents to the ED complaining of dizziness. Patient was seen earlier today for similar symptoms and prescribed for Meclizine. Patient reports he did not fill prescription and reports feeling dizzy at this time. Otherwise: (-) trauma/injury, (-) headache, (-) tinnitus, (-) URI, (-) hearing loss, (-) chest pain, (-) dyspnea, (-) fever, (-) vomiting, (-) diarrhea , (-) syncope, (-) GI bleeding. PMD: Chata Hollins Past Medical History Reviewed: Historical Data, Nursing Documentation, Vital Signs Vital Signs: Last Vital Signs Temp 98 F 01/30/18 19:48 Pulse 79 01/30/18 19:48 Resp 16 01/30/18 19:48 BP 115/67 01/30/18 19:48 Pulse Ox 100 01/30/18 19:48 - Medical History PMH: Asthma, Back Problems, Depression, Migraine, Seizures Denies: Diabetes, Hepatitis, HIV, HTN, Chronic Kidney Disease, Sexually Transmitted Disease - Surgical History Surgical History: No Surg Hx - Family History Family History: States: Unknown Family Hx - Immunization History Hx Tetanus Toxoid Vaccination: No Hx Influenza Vaccination: No Hx Pneumococcal Vaccination: No - Home Medications Home Medications: Ambulatory Orders Medication Instructions Recorded levETIRAcetam [Keppra] 500 mg PO BID 08/15/16 Acetaminophen/Butalbital/Caf 1 tab PO BID 01/04/18 [Fioricet] Naproxen PO DAILY 01/04/18 Zoloft 100 mg PO DAILY 01/04/18 Gabapentin [Neurontin] 300 mg PO TID #60 cap 01/13/18 Sertraline [Zoloft] 100 mg PO DAILY #30 tab 01/13/18 levETIRAcetam [Keppra] 500 mg PO BID #60 tab 01/13/18 traZODone [Desyrel] 100 mg PO HS #30 tab 01/13/18 Meclizine [Meclizine*] 25 mg PO Q6 PRN #20 tab 01/30/18 - Allergies Allergies/Adverse Reactions: Allergies Allergy/AdvReac Type Severity Reaction Status Date / Time No Known Allergies Allergy Verified 01/04/18 18:04 Review of Systems ROS Statement: Except As Marked, All Systems Reviewed And Found Negative Neurological: Positive for: Dizziness Physical Exam - Reviewed Nursing Documentation Reviewed: Yes Vital Signs Reviewed: Yes - Physical Exam Comments: GENERALIZED APPEARANCE:Patient is awake, alert, oriented x3 in no acute distress. Eating starburst candy. SKIN: Warm, dry; (-) cyanosis. HEAD: (-) scalp swelling or tenderness. EYES: (-) conjunctival pallor. ENMT: Mucous membranes dry. NECK: (-) tenderness, (-) stiffness, (-) lymphadenopathy. CHEST AND RESPIRATORY: (-) rales, (-) rhonchi, (-) wheezes; breath sounds equal bilaterally. HEART AND CARDIOVASCULAR: (-) irregularity; (-) murmur, (-) gallop. ABDOMEN AND GI: Soft; (-) distention, (-) tenderness, (-) rebound, (-) guarding , (-) palpable masses, (-) flank tenderness. EXTREMITIES: (-) deformity; (-) edema. Distal pulses: present. NEURO AND PSYCH: Mental status as above. syrup maker: (-) nystagmus; Pupils EOMI, (-) facial asymmetry; (-) dysarthria; tongue and uvula midline. Strength symmetric. Gait: normal. - ECG O2 Sat by Pulse Oximetry: 100 (RA) Pulse Ox Interpretation: Normal Medical Decision Making Medical Decision Making: Time: 2037 ER visit from earlier today reviewed, patient had a normal EKG, CXR, Head CT, and labs were within normal limits, given Rx for meclizine. Plan: -- Antivert 20 mg PO -- Patient remains awake, alert, oriented x 3 and is sitting up in bed comfortably. Patient is found eating, tolerating chips, candy, PO Fluids. Patient is ambulating with a steady gait. -- Considering workup from earlier visit and patient's current exam and presentation, patient is appropriate for outpatient follow-up. -- Advised to follow up with primary care physician or the clinic in 1-2 days without fail. Advised to take medication as prescribed from his visit earlier. Return to the emergency room at any time for any new or worsening symptoms. -- Patient states he fully agrees with and understands discharge instructions. States that he agrees with the plan and disposition. Verbalized and repeated discharge instructions and plan. I have given the patient opportunity to ask any additional questions. Scribe Attestation: Documented by Janusz Townsend, acting as a scribe for Yancy Olson PA-C Provider Scribe Attestation: All medical record entries made by the Scribe were at my direction and personally dictated by me. I have reviewed the chart and agree that the record accurately reflects my personal performance of the history, physical exam, medical decision making, and the department course for this patient. I have also personally directed, reviewed, and agree with the discharge instructions and disposition. Disposition - Clinical Impression Clinical Impression: Dizziness - Patient ED Disposition Is Patient to be Admitted: No - Disposition Referrals: [facility] [Outside] Disposition: Routine/Home Disposition Time: 20:30 Condition: STABLE Instructions: Vertigo (a Type of Dizziness) Forms: [employer] (Senegalese) - PA / POUAKO KURA KAUPAPA MAORI / Resident Statement / has reviewed & agrees with the documentation as recorded.
[2018-01-30 21:16] VITALS: BP 108/59; PULSE 83; RESP 18
== END 2018-01-30 21:36 | disposition home or self-care (01) ==
LOC: H.ER 19:37
DX: R42 Dizziness and giddiness (principal); F32.9 Major depressive disorder, single episode, unspecified; J45.909 Unspecified asthma, uncomplicated

== ENCOUNTER 2018-02-02 13:17 | Emergency (ER) | payer OTHER ==
[2018-02-02 13:17] VITALS: BMI 22.1
[2018-02-02] MEDS ORDERED: Sodium Chloride 0.9% 1,000 ML IV STA (13:52)
--- NOTE | 2018-02-02 13:55 | ED PDOC ---
HPI: Abdomen Time Seen by Provider: 02/02/18 13:44 Chief Complaint (Nursing): Weakness/Neurological Deficit History Per: Patient Onset/Duration Of Symptoms: Days (2) Current Symptoms Are (Timing): Still Present Severity: Moderate Pain Scale Rating Of: 4 Location Of Pain/Discomfort: RUQ, RLQ Quality Of Discomfort: Unable To Describe Associated Symptoms: Fever, Nausea, Diarrhea. denies: Vomiting Exacerbating Factors: None Alleviating Factors: None Additional Complaint(s): Right sided abd pain assoc with diarrhea and efver x 2 days. Nausea but no vomiting. No blood in stools. Past Medical History Vital Signs: Last Vital Signs Temp 97.7 F 02/02/18 13:28 Pulse 102 H 02/02/18 13:28 Resp 20 02/02/18 13:28 BP Pulse Ox 99 02/02/18 17:33 - Medical History PMH: Asthma, Back Problems, Depression, Migraine, Seizures Denies: Diabetes, Hepatitis, HIV, HTN, Chronic Kidney Disease, Sexually Transmitted Disease - Family History Family History: States: Unknown Family Hx - Immunization History Hx Tetanus Toxoid Vaccination: No Hx Influenza Vaccination: No Hx Pneumococcal Vaccination: No - Home Medications Home Medications: Ambulatory Orders Medication Instructions Recorded levETIRAcetam [Keppra] 500 mg PO BID 08/15/16 Acetaminophen/Butalbital/Caf 1 tab PO BID 01/04/18 [Fioricet] Naproxen PO DAILY 01/04/18 Zoloft 100 mg PO DAILY 01/04/18 Gabapentin [Neurontin] 300 mg PO TID #60 cap 01/13/18 Sertraline [Zoloft] 100 mg PO DAILY #30 tab 01/13/18 levETIRAcetam [Keppra] 500 mg PO BID #60 tab 01/13/18 traZODone [Desyrel] 100 mg PO HS #30 tab 01/13/18 Meclizine [Meclizine*] 25 mg PO Q6 PRN #20 tab 01/30/18 Dicyclomine [Dicyclomine HCl] 10 mg PO Q8 #10 cap 02/02/18 Doxycycline Hyclate 100 mg PO BID #20 capsule 02/02/18 - Allergies Allergies/Adverse Reactions: Allergies Allergy/AdvReac Type Severity Reaction Status Date / Time No Known Allergies Allergy Verified 02/02/18 13:28 Review of Systems ROS Statement: Except As Marked, All Systems Reviewed And Found Negative Constitutional: Positive for: Fever Gastrointestinal: Positive for: Nausea, Abdominal Pain, Diarrhea. Negative for : Melena, Hematochezia, Hematemesis Physical Exam - Reviewed Nursing Documentation Reviewed: Yes Vital Signs Reviewed: Yes - Physical Exam Appears: Positive for: Non-toxic, No Acute Distress Head Exam: Positive for: ATRAUMATIC, NORMAL INSPECTION, NORMOCEPHALIC Skin: Positive for: Normal Color, Warm, DRY Eye Exam: Positive for: EOMI, Normal appearance, PERRL ENT: Positive for: Normal ENT Inspection Neck: Positive for: Normal, Painless ROM Cardiovascular/Chest: Positive for: Regular Rate, Rhythm Respiratory: Positive for: CNT, Normal Breath Sounds Gastrointestinal/Abdominal: Positive for: Soft, Tenderness (RLQ and RUQ) Back: Positive for: Normal Inspection Extremity: Positive for: Normal ROM Neurologic/Psych: Positive for: Alert, Oriented - Laboratory Results Result Diagrams: 02/02/18 15:15 02/02/18 15:15 - ECG O2 Sat by Pulse Oximetry: 99 Disposition - Clinical Impression Clinical Impression: Colitis - Patient ED Disposition Is Patient to be Admitted: No Counseled Patient/Family Regarding: Studies Performed, Diagnosis, Need For Followup, Rx Given - Disposition Referrals: Shaheed Boo MD, PhD [Staff Provider] - Disposition: Routine/Home Disposition Time: 17:32 Condition: FAIR Prescriptions: Dicyclomine [Dicyclomine HCl] 10 mg PO Q8 #10 cap Doxycycline Hyclate 100 mg PO BID #20 capsule Instructions: Irritable Bowel Syndrome Forms: [employer] (Tristanian)
[2018-02-02 15:57] LABS: BASO % 0.1 % (0.0-2.0); EOS # 0.2 K/uL (0.0-0.7); EOS % 1.5 % (0.0-4.0); HEMOGLOBIN 13.1 g/dL (12.0-18.0); LYMPH # 1.4 K/uL (1.0-4.3); LYMPH % 12.9 % (20.0-40.0); MEAN CORPUSCULAR HEMOGLOBIN 32.9 pg (27.0-31.0); MEAN CORPUSCULAR HGB CONC 34.3 g/dL (33.0-37.0); MEAN PLATELET VOLUME 6.2 fl (7.2-11.7); MONO # 0.9 K/uL (0.0-0.8); MONO % 8.5 % (0.0-10.0); NEUT # 8.4 K/uL (1.8-7.0); RBC 3.98 Mil/uL (4.40-5.90); RED CELL DISTRIBUTION WIDTH 13.9 % (11.5-14.5); WHITE BLOOD COUNT 10.8 K/uL (4.8-10.8)
[2018-02-02 16:34] LABS: ALB/GLOB RATIO 1.2 (1.0-2.1); ALBUMIN 3.7 g/dL (3.5-5.0); ALT/SGPT 28 U/L (21-72); AST/SGOT 20 U/L (17-59); BLOOD UREA NITROGEN 15 mg/dl (9-20); GFR AFRICAN-AMERICAN > 60; GFR NON-AFRICAN AMERICAN > 60
[2018-02-02] MEDS ORDERED: Sodium Chloride 0.9% 50 ML IV ONE (16:50)
[2018-02-02] MEDS ORDERED: Iohexol 300 100 ML IJ ONE (16:50)
--- NOTE | 2018-02-02 17:14 | CT ---
PROCEDURE: CT Abdomen and Pelvis with contrast HISTORY: abd pain diarrhea and fever COMPARISON: Abdomen pelvis CT with contrast 10/03/2017. TECHNIQUE: Contrast dose: Omnipaque 300, 95 cc Radiation dose: Total exam DLP = 281.40 mGy-cm. This CT exam was performed using one or more of the following dose reduction techniques: Automated exposure control, adjustment of the mA and/or kV according to patient size, and/or use of iterative reconstruction technique. FINDINGS: LOWER THORAX: Tiny hiatal hernia is reiterated. . LIVER: Trace fibrotic changes in the right middle lobe base posterior laterally. GALLBLADDER AND BILE DUCTS: Unremarkable. PANCREAS: Unremarkable. No gross lesion or ductal dilatation. SPLEEN: Unremarkable. ADRENALS: Unremarkable. No mass. KIDNEYS AND URETERS: Unremarkable. No hydronephrosis. No solid mass. VASCULATURE: Unremarkable. No aortic aneurysm. BOWEL: Lack of oral contrast limits evaluation the gastrointestinal tract at this time is distended with retained food in the interval. There is no bowel obstruction, measure edema or pericolic or perienteric reaction appreciated throughout the abdomen and pelvis. Limited thickening of the rectum is not excluded and clinical correlation is advised including a full thickened toward the right in the interval. This may reflect partial arm averaging of the fold in plane. APPENDIX: Normal appendix. PERITONEUM: Unremarkable. No free fluid. No free air. LYMPH NODES: Unremarkable. No enlarged lymph nodes. BLADDER: Unremarkable. REPRODUCTIVE: Prostate gland is enlarged mildly. BONES: No acute fracture. OTHER FINDINGS: None. IMPRESSION: No definitive acute abdominal findings. In the pelvis, the rectum may be thickened although in the study is limited in evaluation. Clinically correlate further. No cm rectal reaction appreciable. No colonic diverticular changes. Consider lower endoscopy follow-up. Enlarged prostate gland.
[2018-02-02 18:40] VITALS: BP 114/70; PULSE 74; RESP 18; TEMP 98; O2SAT 97
== END 2018-02-02 18:39 | disposition home or self-care (01) ==
LOC: H.ER 13:17
DX: K52.9 Noninfective gastroenteritis and colitis, unspecified (principal); Z86.59 Personal history of other mental and behavioral disorders; J45.909 Unspecified asthma, uncomplicated; N40.0 Benign prostatic hyperplasia without lower urinary tract symptoms
CPT/HCPCS: 74177; 80053; 85025; 87040; 96360; 96361; 99281; J7030; Q9967

== ENCOUNTER 2018-02-05 21:01 | Emergency (ER) | payer OTHER ==
[2018-02-05 21:01] VITALS: BMI 22.1
[2018-02-05] MEDS ORDERED: Famotidine 20mg/50ml 20 MG/50 ML BAG IVPB ONE ×2 (22:21→22:30)
--- NOTE | 2018-02-05 22:31 | ED PDOC ---
HPI: Abdomen Time Seen by Provider: 02/05/18 21:05 Chief Complaint (Nursing): Abdominal Pain Chief Complaint (Provider): Abdominal Pain History Per: Patient History/Exam Limitations: no limitations Onset/Duration Of Symptoms: Days (x4) Current Symptoms Are (Timing): Still Present Location Of Pain/Discomfort: RUQ, RLQ Associated Symptoms: denies: Fever, Vomiting, Diarrhea Additional Complaint(s): 57 year old homeless male with a past medical history of seizures, drug addiction, and substance abuse presents to the ED complaining of upper abdominal pain. Patient was seen here for the same pain on 02/02/[address] at the time which resulted with no acute findings. Patient returns today concerned for pain. Denies fever, vomiting, diarrhea. PMD: Bolivar Farias Past Medical History Reviewed: Historical Data, Nursing Documentation, Vital Signs Vital Signs: Last Vital Signs Temp 97.9 F 02/06/18 00:12 Pulse 82 02/06/18 00:12 Resp 18 02/06/18 00:12 BP 142/94 H 02/06/18 00:12 Pulse Ox 100 02/06/18 04:30 - Medical History PMH: Asthma, Back Problems, Depression, Migraine, Seizures Denies: Diabetes, Hepatitis, HIV, HTN, Chronic Kidney Disease, Sexually Transmitted Disease - Surgical History Surgical History: No Surg Hx - Family History Family History: States: Unknown Family Hx - Social History Current smoker - smoking cessation education provided: No Alcohol: None Drugs: Denies - Immunization History Hx Tetanus Toxoid Vaccination: No Hx Influenza Vaccination: No Hx Pneumococcal Vaccination: No - Home Medications Home Medications: Ambulatory Orders Medication Instructions Recorded levETIRAcetam [Keppra] 500 mg PO BID 08/15/16 Acetaminophen/Butalbital/Caf 1 tab PO BID 01/04/18 [Fioricet] Naproxen PO DAILY 01/04/18 Zoloft 100 mg PO DAILY 01/04/18 Gabapentin [Neurontin] 300 mg PO TID #60 cap 01/13/18 Sertraline [Zoloft] 100 mg PO DAILY #30 tab 01/13/18 levETIRAcetam [Keppra] 500 mg PO BID #60 tab 01/13/18 traZODone [Desyrel] 100 mg PO HS #30 tab 01/13/18 Meclizine [Meclizine*] 25 mg PO Q6 PRN #20 tab 01/30/18 Dicyclomine [Dicyclomine HCl] 10 mg PO Q8 #10 cap 02/02/18 Doxycycline Hyclate 100 mg PO BID #20 capsule 02/02/18 - Allergies Allergies/Adverse Reactions: Allergies Allergy/AdvReac Type Severity Reaction Status Date / Time No Known Allergies Allergy Verified 02/02/18 13:28 Review of Systems ROS Statement: Except As Marked, All Systems Reviewed And Found Negative Constitutional: Negative for: Fever Gastrointestinal: Positive for: Abdominal Pain (upper abdominal pain). Negative for: Vomiting, Diarrhea Physical Exam - Reviewed Nursing Documentation Reviewed: Yes Vital Signs Reviewed: Yes - Physical Exam Appears: Positive for: Non-toxic, No Acute Distress (pt appears to be comfortable and in no distress) Head Exam: Positive for: ATRAUMATIC, NORMOCEPHALIC Skin: Positive for: Normal Color, Warm, Dry Eye Exam: Positive for: Normal appearance, EOMI, PERRL ENT: Positive for: Normal ENT Inspection Neck: Positive for: Normal, Painless ROM, Supple Cardiovascular/Chest: Positive for: Regular Rate, Rhythm. Negative for: Murmur Respiratory: Positive for: Normal Breath Sounds. Negative for: Respiratory Distress Gastrointestinal/Abdominal: Positive for: Normal Exam, Soft. Negative for: Tenderness Back: Positive for: Normal Inspection. Negative for: L CVA Tenderness, R CVA Tenderness, Vertebral Tenderness Extremity: Positive for: Normal ROM. Negative for: Pedal Edema, Deformity Neurologic/Psych: Positive for: Alert, Oriented. Negative for: Motor/Sensory Deficits - Laboratory Results Result Diagrams: 02/05/18 22:17 02/05/18 22:17 - ECG O2 Sat by Pulse Oximetry: 100 (RA) Pulse Ox Interpretation: Normal Medical Decision Making Medical Decision Making: Time: 2229 Plan: abd pain, pt appears comfortable with normal exam -- Pepcid [20mg/50ml Premix] 20 mg in 50 ml IVPB pt sleeping throughout ER stay. pt comfortable and tolerating po in the ED. stable for outpatient follow up. Scribe Attestation: Documented by Janusz Townsend, acting as a scribe for Dr. Junior Solano MD. Provider Scribe Attestation: All medical record entries made by the Scribe were at my direction and personally dictated by me. I have reviewed the chart and agree that the record accurately reflects my personal performance of the history, physical exam, medical decision making, and the department course for this patient. I have also personally directed, reviewed, and agree with the discharge instructions and disposition. Disposition - Clinical Impression Clinical Impression: Abdominal pain - Patient ED Disposition Is Patient to be Admitted: No Counseled Patient/Family Regarding: Studies Performed, Diagnosis, Need For Followup - Disposition Disposition: Routine/Home Disposition Time: 23:00 Condition: IMPROVED Additional Instructions: follow up with your primary doctor in 1-2 days return to the ED with any worsening or concerning symptoms Instructions: Stomach Ache and Stomach Upset Forms: [employer] (Italian)
[2018-02-05 22:45] LABS: BASO % 0.3 % (0.0-2.0); EOS # 0.2 K/uL (0.0-0.7); EOS % 1.3 % (0.0-4.0); HEMOGLOBIN 12.4 g/dL (12.0-18.0); LYMPH # 1.5 K/uL (1.0-4.3); LYMPH % 13.5 % (20.0-40.0); MEAN CELL VOLUME 96.4 fl (80.0-94.0); MEAN CORPUSCULAR HEMOGLOBIN 32.1 pg (27.0-31.0); MEAN CORPUSCULAR HGB CONC 33.3 g/dL (33.0-37.0); MONO # 0.9 K/uL (0.0-0.8); MONO % 8.4 % (0.0-10.0); NEUT # 8.7 K/uL (1.8-7.0); NEUT % 76.5 % (50.0-75.0); RBC 3.87 Mil/uL (4.40-5.90); RED CELL DISTRIBUTION WIDTH 13.4 % (11.5-14.5); WHITE BLOOD COUNT 11.3 K/uL (4.8-10.8)
[2018-02-05 23:06] LABS: ALB/GLOB RATIO 1.2 (1.0-2.1); ALBUMIN 3.5 g/dL (3.5-5.0); ALT/SGPT 29 U/L (21-72); AST/SGOT 32 U/L (17-59); BLOOD UREA NITROGEN 19 mg/dl (9-20); CALCIUM 8.7 mg/dL (8.4-10.2); GFR AFRICAN-AMERICAN > 60; GFR NON-AFRICAN AMERICAN > 60; LIPASE 100 U/L (23-300)
[2018-02-06 00:13] VITALS: BP 142/94; PULSE 82; RESP 18; TEMP 97.9
[2018-02-06 04:30] VITALS: O2SAT 100
== END 2018-02-06 00:13 | disposition home or self-care (01) ==
LOC: H.ER 21:01
DX: R10.11 Right upper quadrant pain (principal); F19.10 Other psychoactive substance abuse, uncomplicated; Z59.0 Homelessness

== ENCOUNTER 2018-03-05 16:32 | Emergency (ER) | payer OTHER ==
[2018-03-05 16:33] VITALS: BMI 22.1
[2018-03-05] MEDS ORDERED: Sodium Chloride 0.9% 1,000 ML IV SCH (17:15)
[2018-03-05 17:40] LABS: BASO % 0.1 % (0.0-2.0); EOS # 0.1 K/uL (0.0-0.7); EOS % 0.4 % (0.0-4.0); HEMOGLOBIN 13.2 g/dL (12.0-18.0); LYMPH # 0.7 K/uL (1.0-4.3); LYMPH % 4.9 % (20.0-40.0); MEAN CORPUSCULAR HEMOGLOBIN 31.7 pg (27.0-31.0); MEAN CORPUSCULAR HGB CONC 32.7 g/dL (33.0-37.0); MEAN PLATELET VOLUME 6.1 fl (7.2-11.7); MONO # 1.4 K/uL (0.0-0.8); NEUT % 85.6 % (50.0-75.0); PLATELET COUNT 325 K/uL (130-400); RBC 4.15 Mil/uL (4.40-5.90); RED CELL DISTRIBUTION WIDTH 13.8 % (11.5-14.5); WHITE BLOOD COUNT 15.2 K/uL (4.8-10.8)
[2018-03-05 17:57] LABS: BLOOD UREA NITROGEN 17 mg/dl (9-20); CALCIUM 8.6 mg/dL (8.4-10.2); GFR AFRICAN-AMERICAN > 60; GFR NON-AFRICAN AMERICAN > 60
--- NOTE | 2018-03-05 18:42 | ED PDOC ---
HPI: Psych/Substance Abuse Time Seen by Provider: 03/05/18 17:02 Chief Complaint (Nursing): Substance Abuse Chief Complaint (Provider): Substance Abuse History Per: Patient, EMS History/Exam Limitations: no limitations Current Symptoms Are (Timing): Better Additional Complaint(s): 57 year old male with medical history of seizures, presents to the emergency department via EMS for evaluation of substance abuse/ heroin overdose. Patient states that he was at his friend's house and snorted a bag of heroin and then next thing he remembers is being in an ambulance. 1 dose of IV Narcan was given in field with patient returning to normal mental status shortly afterwards. Upon arrival, patient is awake, alert, oriented x3 with complaints of nausea and feeling fatigued. He offers no further complaints at this time. PMD: Chata Weldon DO Past Medical History Reviewed: Historical Data, Nursing Documentation, Vital Signs Vital Signs: Last Vital Signs Temp 98 F 03/05/18 16:39 Pulse 88 03/05/18 16:39 Resp BP 117/95 H 03/05/18 16:39 Pulse Ox 98 03/05/18 16:39 - Medical History PMH: Asthma, Back Problems, Depression, Migraine, Seizures - Surgical History Other surgeries: left leg - Family History Family History: States: Unknown Family Hx - Social History Current smoker - smoking cessation education provided: Yes (1 pack daily) Alcohol: None Drugs: Opiates - Home Medications Home Medications: Ambulatory Orders Medication Instructions Recorded levETIRAcetam [Keppra] 500 mg PO BID 08/15/16 Acetaminophen/Butalbital/Caf 1 tab PO BID 01/04/18 [Fioricet] Naproxen PO DAILY 01/04/18 Zoloft 100 mg PO DAILY 01/04/18 Gabapentin [Neurontin] 300 mg PO TID #60 cap 01/13/18 Sertraline [Zoloft] 100 mg PO DAILY #30 tab 01/13/18 levETIRAcetam [Keppra] 500 mg PO BID #60 tab 01/13/18 traZODone [Desyrel] 100 mg PO HS #30 tab 01/13/18 Meclizine [Meclizine*] 25 mg PO Q6 PRN #20 tab 01/30/18 Dicyclomine [Dicyclomine HCl] 10 mg PO Q8 #10 cap 02/02/18 Doxycycline Hyclate 100 mg PO BID #20 capsule 02/02/18 Naloxone HCl [Narcan] 4 mg NS ONCE PRN #1 unit 03/05/18 - Allergies Allergies/Adverse Reactions: Allergies Allergy/AdvReac Type Severity Reaction Status Date / Time No Known Allergies Allergy Verified 02/02/18 13:28 Review of Systems ROS Statement: Except As Marked, All Systems Reviewed And Found Negative Constitutional: Positive for: Malaise (fatigue) Gastrointestinal: Positive for: Nausea Physical Exam - Reviewed Nursing Documentation Reviewed: Yes Vital Signs Reviewed: Yes - Physical Exam Comments: GENERAL APPEARANCE: Patient is awake, alert, oriented x 3, in no acute distress. Ambulatory in ED with a steady gait. SKIN: Warm, dry; (-) cyanosis HEAD: (-) scalp swelling, (-) scalp tenderness. EYES: pinpoint pupils bilaterally (-) conjunctival pallor, (-) scleral icterus, (-) nystagmus. EOMI and painless. ENMT: Mucous membranes moist. Airway patent: (-) stridor. Pharynx clear, uvula midline. NECK: Supple, FROM (-) tenderness, (-) stiffness, (-) lymphadenopathy. HEART AND CARDIOVASCULAR: (-) irregularity; (-) murmur, (-) gallop. CHEST AND RESPIRATORY: (-) rales, (-) rhonchi, (-) wheezes; breath sounds equal bilaterally. Respirations even and nonlabored, speaking in full sentences. ABDOMEN: Soft, (-) distention, (-) tenderness, (-) guarding. NEURO AND PSYCH: Mental status as above. circuit breaker assembler: Intact. (-) facial asymmetry; tongue midline. Strength symmetric. Speech clear. Cerebellar tests intact. - Laboratory Results Result Diagrams: 03/05/18 17:37 03/05/18 17:37 - ECG O2 Sat by Pulse Oximetry: 98 (RA) Pulse Ox Interpretation: Normal Medical Decision Making Medical Decision Making: Initial Impression: Heroin overdose; Substance abuse Initial Plan: * EKG * Alcohol serum * BMP * CBC * Glucose, POC * NS 1,000ml IV per 1,000mls/hr * Zofran inj 4mg IVP 1747 EKG: NSR at 75BMP. No ST elevation. QTC at 426. Accucheck: 112 1845 Patient reports nausea resolved. Feeling improved. Labs reviewed. Slightly elevated WBC however patient denies any complaints at present or recent illness. 1935 On re-evaluation, patient reports improvement of symptoms. On exam, patient remains AAOx3, in no acute distress. Lungs clear to auscultation, cardiac RRR, abdomen soft, non-tender, repeat neuro exam shows no focal findings. Ambulatory in ED with steady unassisted gait. Respirations nonlabored, speaking in full sentences. Patient was observed in ED for 2.5 hours with no evidence of neurological instability. VSS, stable for discharge. Lab/Diagnostic results d/w the patient in great detail. Diagnosis of heroin overdose, substance abuse d/w the patient. Based on history, exam and diagnostic results, plan will be for outpatient follow up. Patient instructed to follow-up with pmd / referral provided / the clinic in 1- 2 days without fail. Advised to take medication as prescribed. Return to the emergency room at any time for any new or worsening symptoms. Patient states he fully agrees with and understands discharge instructions. States that he agrees with the plan and disposition. Verbalized and repeated discharge instructions and plan. I have given the patient opportunity to ask any additional questions. Scribe Attestation: Documented by Dorota Logan, acting as a scribe for Clare Cosby PA-C. Provider Scribe Attestation: All medical record entries made by the Scribe were at my direction and personally dictated by me. I have reviewed the chart and agree that the record accurately reflects my personal performance of the history, physical exam, medical decision making, and the department course for this patient. I have also personally directed, reviewed, and agree with the discharge instructions and disposition. Disposition - Clinical Impression Clinical Impression: Heroin overdose, Substance abuse - Patient ED Disposition Is Patient to be Admitted: No Counseled Patient/Family Regarding: Studies Performed, Diagnosis, Need For Followup, Rx Given, Smoking Cessation - Disposition Referrals: Chata Weldon DO [Staff Provider] - Disposition: Routine/Home Disposition Time: 19:36 Condition: FAIR Additional Instructions: FOLLOW UP WITH CLINIC/PMD IN 1-2 DAYS WITHOUT FAIL. RETURN TO ED WITH ANY NEW OR WORSENING SYMPTOMS. Prescriptions: Naloxone HCl [Narcan] 4 mg NS ONCE PRN #1 unit PRN Reason: OVERDOSE Instructions: Drug Abuse and Drug Addiction (DC), Narcotic Overdose , Drug Abuse Treatment, How to Give Naloxone Forms: [employer] (Korean) Print Language: BELGIAN - POA Present On Arrival: None Results - Lab Results Lab Results: 03/05/18 03/05/18 03/05/18 17:45 17:37 17:37 WBC 15.2 H RBC 4.15 L Hgb 13.2 Hct 40.3 MCV 97.0 H MCH 31.7 H MCHC 32.7 L RDW 13.8 Plt Count 325 MPV 6.1 L Neut % (Auto) 85.6 H Lymph % (Auto) 4.9 L [place] % (Auto) 9.0 Eos % (Auto) 0.4 Baso % (Auto) 0.1 Neut # (Auto) 13.0 H Lymph # (Auto) 0.7 L [place] # (Auto) 1.4 H Eos # (Auto) 0.1 Baso # (Auto) 0.0 Neutrophils % (Manual) 81 H Lymphocytes % (Manual) 8 L Monocytes % (Manual) 9 Eosinophils % (Manual) 1 Basophils % (Manual) 1 Platelet Estimate Normal Anisocytosis (manual) Slight Macrocytosis (manual) Slight Ovalocytes Moderate Sodium 142 Potassium 4.1 Chloride 106 Carbon Dioxide 25 Anion Gap 15 BUN 17 Creatinine 0.9 Est GFR ( Amer) > 60 Est GFR (Non-Af Amer) > 60 POC Glucose (mg/dL) 112 H Random Glucose 113 H Calcium 8.6 Alcohol, Quantitative < 10
[2018-03-05 19:35] LABS: ANISOCYTOSIS SLIGHT; BASOPHIL 1 % (0-2); EOSINOPHIL 1 % (0-7); LYMPHOCYTE 8 % (20-50); MONOCYTE 9 % (0-10); NEUTROPHIL 81 % (42-75); PLATELET ESTIMATE NORMAL (NORMAL); TOTAL CELLS COUNTED 100
[2018-03-05 19:36] LABS: OVALOCYTES MODERATE
[2018-03-05 19:58] VITALS: BP 113/69; PULSE 90; RESP 16; TEMP 97.9
[2018-03-05 20:15] VITALS: O2SAT 98
--- NOTE | 2018-03-09 21:31 | CARD ---
APPROVED REPORT EKG Measurement Heart [id number] <Conclusion> Normal sinus rhythm Normal ECG
== END 2018-03-05 20:05 | disposition home or self-care (01) ==
LOC: H.ER 16:32
DX: T40.1X1A Poisoning by heroin, accidental (unintentional), initial encounter (principal); Z86.69 Personal history of other diseases of the nervous system and sense organs; F32.9 Major depressive disorder, single episode, unspecified; D72.829 Elevated white blood cell count, unspecified; F17.200 Nicotine dependence, unspecified, uncomplicated; J45.909 Unspecified asthma, uncomplicated
CPT/HCPCS: 80048; 80320; 82948; 85025; 96374; 99284; J2405; J7030